=== PATIENT | female | born 1945 | race Caucasian/White ===

== ENCOUNTER 2020-04-05 15:20 | Inpatient (IN) | payer MEDICARE, SELFPAY ==
[2020-04-05] VITALS (10 sets, daily range): BP systolic 108–162; BP diastolic 67–84; PULSE 76–101; RESP 14–23; TEMP 36.4–36.7; O2SAT 95–100; BMI 21.0
--- NOTE | ~2020-04-05 | XR_ITS ---
EXAMINATION: XR hip LT 1V DATE: 04/06/2020 17:13 INDICATION: Left hip replacement. TECHNIQUE: A single view of left hip was obtained. COMPARISON: Left hip radiographs 04/05/2020 FINDINGS: There is a bipolar left hip hemiarthroplasty in near-anatomic alignment. No fracture. Left hip joint space is normal. There is gas in the soft tissues, consistent with recent surgery. IMPRESSION: 1. Bipolar left hip hemiarthroplasty in near-anatomic alignment. Reviewed, dictated and finalized at location A. ULA BOTTLER
--- NOTE | ~2020-04-05 | XR_ITS ---
EXAMINATION: XR hip LT 2V w AP pelvis DATE: 04/05/2020 16:19 INDICATION: Left hip pain. Fall. TECHNIQUE: An anteroposterior view of the pelvis and 2 views of left hip were obtained. COMPARISON: None. FINDINGS: There is a subcapital fracture of left femoral neck. The distal fracture fragment demonstra mayte 2.2 cm shortening and 10 mm anterior displacement. There is mild osteoarthritis of the hips. Ther e is mild lumbar spondylosis. IMPRESSION: 1. Subcapital fracture of left femoral neck. 2. Mild osteoarthritis of the hips. Reviewed, dictated and finalized at location A. PIT WORKER
--- NOTE | ~2020-04-05 | XR_ITS ---
EXAMINATION: XR chest 1V portable DATE: 04/05/2020 16:20 INDICATION: Fall. TECHNIQUE: A single frontal view of the chest was obtained. COMPARISON: None. FINDINGS: The patient is rotated to her right. There is mild scarring at the lung apices. There are m ild airspace opacities in left mid and lower lung zones. No pleural effusion or pneumothorax. The hea rt size is normal. IMPRESSION: 1. Mild airspace opacities in left mid and lower lung zones, consistent with atelectasis versus pneum onia. Reviewed, dictated and finalized at location A. CTOR PROCESS IMPROVEMENT IMPRESSION: 1. Mild airspace opacities in left mid and lower lung zones, consistent with at electasis versus pneumonia.
--- NOTE | 2020-04-05 15:39 | ECG_ITS ---
Measurements Intervals [place] Rate: 76 P: 52 AK: 239 QRS: -59 QRSD: 153 T: 56 QT: 409 QTc: 462 Interpretive Statements SINUS RHYTHM WITH FIRST DEGREE AV BLOCK RIGHT BUNDLE BRANCH BLOCK LEFT ANTERIOR FASCICULAR BLOCK ABNORMAL ECG Electronically Signed On 04-05-2020 16:36:34 POLYSOMNOGRAPHY TECH by Connor Roberts D.O.
[2020-04-05 16:00] LABS: Basophils Percent Auto 0.2 % (0.2-1.2); Hematocrit 44.5 % (37.0-47.0); Hemoglobin 14.5 g/dL (12.0-15.0); Immature Granulocyte Absolute 0.04 K/mm3 (0.00-0.031); Immature Granulocyte Percent A 0.3 % (0-0.5); Lymphocytes Absolute Auto 0.63 K/mm3 (0.9-3.2); Lymphocytes Percent Auto 5.2 % (18.3-44.2); Mean Corpuscular HGB Conc 32.6 g/dl (32-36); Mean Corpuscular Hemoglobin 27.5 pg (26-34); Mean Corpuscular Volume 84.4 fl (80-100); Mean Platelet Volume 10.3 fl (7.4-10.4); Monocytes Absolute Auto 0.5 K/mm3 (0.1-0.6); Monocytes Percent Auto 4.3 % (2.6-8.5); Platelet Count Result 212 k/mm3 (150-375); Red Blood Count 5.27 M/mm3 (4.2-5.4); Red Cell Distribution Width 14.1 % (11.5-14.5); White Blood Count 12.2 K/mm3 (4.5-10.0)
[2020-04-05 16:11] LABS: Alanine Aminotransferase 20 U/L (4-35); Albumin Level 4.4 g/dL (3.5-5.1); Alkaline Phosphatase 110 U/L (38-126); Anion Gap 8 mmol/L (8-16); Aspartate Amino Transferase 25 U/L (14-36); Bilirubin,Total 0.6 mg/dL (0.2-1.3); Blood Urea Nitrogen 20 mg/dL (7-17); Calcium 10.8 mg/dL (8.4-10.2); Carbon Dioxide 25 mmol/L (22-30); Chloride 109 mmol/L (98-107); Estimated CRCL calculation 62 ml/min; Estimated Glomerular Filt Rate > 60; Glucose 158 mg/dL (65-105); Potassium 3.7 mmol/L (3.4-5.0); Sodium 142 mmol/L (137-145)
[2020-04-05 16:40] LABS: INR 0.9; Prothrombin Time 12.5 Seconds (11.1-14.7)
--- NOTE | 2020-04-05 16:53 | ED.GENADULT ---
HPI - General Adult General Chief complaint: Extremity Injury, Lower <MARY Rider Last Filed: 04/05/20 17:13> Stated complaint: left hip pain <MARY Rider Last Filed: 04/05/20 17:13> Time Seen by Provider: 04/05/20 15:28 <MARY Rider Last Filed: 04/05/20 17:13> Source: patient <MARY Rider Last Filed: 04/05/20 17:13> Mode of arrival: ambulatory <MARY Rider Last Filed: 04/05/20 17:13> Limitations: other (Intellectual disability) <MARY Rider Last Filed: 04/05/20 17:13> History of Present Illness HPI narrative: Patient is a 74-year-old female who presents from home for evaluation of left hip injury patient slipped on some papers on the ground this morning injuring the left hip was brought to the emergency department at that time for evaluation. Patient is a limited historian secondary to intellectual disability. Patient lives at home with family. Family denies other injuries or concerns at this time on arrival patient noting left hip pain only denying other injuries or complaints was given morphine <MARY Rider Last Filed: 04/05/20 17:13> Related Data Home medications: Home Medications Medication Instructions Recorded Confirmed amlodipine [Norvasc] 10 mg PO DAILY 04/05/20 04/05/20 losartan [Cozaar] 100 mg PO DAILY 04/05/20 04/05/20 <MARY Rider Last Filed: 04/05/20 17:13> Allergies/adverse reactions: Allergies Allergy/AdvReac Type Severity Reaction Status Date / Time No Known Allergies Allergy Verified 04/05/20 15:32 <MARY Rider Last Filed: 04/05/20 17:13> [facility] Past Medical History Medical History: Medical History HTN (hypertension) with goal to be determined Hypertension Mentally challenged <MARY Rider Last Filed: 04/05/20 17:13> Surgical History Surgical History: Surgical History No pertinent past surgical history <Jon Willson PA-C - Last Filed: 04/05/20 17:13> Family History Family History: Family History Father Heart attack Cancer Hypertension Son Hypertension Sibling Sleep apnea <Jon Willson PA-C - Last Filed: 04/05/20 17:13> Social History Social History: Social History (Updated 04/06/20 @ 08:44 by CLARISSE Campo) Social History: The patient tells me that she lives with her son. She tells me that she has a son and a daughter but her daughter is in [place], [place] in a facility. The patient denies any alcohol use. She denies any marijuana. She stated that she smoked up to 3 packs of cigarettes/day. Patient stated that she quit smoking about 4 years ago. She denies any illicit drugs. She stated that she is a full code and her son is a durable power retail warehouse associate for healthcare. Patient is . She is completely ambulatory without any assistance. Smoking packs per day: 0.2 Smoking cigarettes per day: 4.0 Years smoked: 3 Smoking pack-years: 0.60 Smoking status: Former smoker Tobacco type: cigarettes Smoking end date: 03/05/14 Alcohol intake: never Substance use: never Substance use type: does not use Living arrangements: with family Additional living arrangements comments: lives with son Occupation/Education: unemployed Gender identity (if verbalized by the patient): Female Spiritual care concerns: No <Jon Willson PA-C - Last Filed: 04/05/20 17:13> Exam Narrative: Exam Narrative: GENERAL: Well-appearing, well-nourished, and in no acute distress. HEAD: Normocephalic, atraumatic. EYES: PERRLA and EOMI. ENT: Nares clear, no rhinorrhea or epistaxis. Mucous membranes moist. CHEST: Clear to auscultation. No respiratory distress. No wheezes rales or rh
[2020-04-05] MEDS: SODIUM CHLORIDE 0.9% IV 500 ML 999 ML IV CONT (16:54)
[2020-04-05 17:07] LABS: Add Urine Microscopic? YES; Appearance Urine Cloudy (Clear); Bacteria Urine Trace /hpf; Bilirubin Urine Negative (Negative); Blood Urine Negative (Negative); Color Urine Yellow (Yellow); Glucose Urine UA Negative (Negative); Ketones Urine Negative (Negative); Leukocyte Esterase Ur Negative LEU/UL (Negative); Mucus Urine Rare /lpf; Nitrate Urine Negative (Negative); Protein Urine Negative (Negative); Specific Grav Ur 1.011 (1.001-1.035); Urobilinogen Urine Negative mg/dL (<2.0); WBC Urine 0-3 /hpf
--- NOTE | 2020-04-05 20:27 | ADMGEN ---
This patient, Kimberley Peng, was admitted to Medical Room 254-01. Patient/family oriented to hospital policies and general routines including ID bracelet, bed and alarms, visiting hours, pain management, procedures, bathroom and other care routines, personal items, smoking policy, room service/diet, and visiting hours. Information on how to activate the Rapid Response Team has been discussed. Patient/Family are encouraged to report perceived risks to care and to ask questions if they do not understand what they are told or what they should do.
[2020-04-05] MEDS: LACTATED RINGERS 1,000 ML 75 ML IV CONT (20:30)
[2020-04-05] MEDS: FAMOTIDINE 20 MG/2 ML VIAL IV PUSH (20:32)
[2020-04-05 20:56] LABS: Anion Gap 9 mmol/L (8-16); Blood Urea Nitrogen 18 mg/dL (7-17); Calcium 10.3 mg/dL (8.4-10.2); Carbon Dioxide 20 mmol/L (22-30); Chloride 111 mmol/L (98-107); Estimated CRCL calculation 70 ml/min; Estimated Glomerular Filt Rate > 60; Glucose 154 mg/dL (65-105); Potassium 3.9 mmol/L (3.4-5.0); Sodium 140 mmol/L (137-145)
--- NOTE | 2020-04-05 21:10 | PM.IMHP ---
H&P: HPI History of Present Illness Date/Time: 04/05/20 21:10 Chief Complaint: Left hip fracture Narrative: Kimberley Peng is a 74 year old female who lives with her son. The patient came in to be evaluated for left hip pain today. The patient stated that she slid on some papers at home and landed on her left hip. She denies hitting her head. The patient states that she usually walks independently and does not use at a walker or cane. Patient's white count was 12.2. The patient's blood sugar was 158-154. Calcium 10.3. A Schwartz catheter was placed in the emergency room and it looks like a dark gisell. Chest x-ray was read as mild airspace opacities In left mid and lower lung zones, consistent with atelectasis and pneumonia. Hip and pelvis x-ray was read as subcapital fracture of the left femoral neck. Mild osteoarthritis of the hips. The patient was given IV fluids and IV Tylenol in the emergency room. Ortho has been consulted. Patient was admitted to inpatient services date of service is 04/05/2020. Review of Systems Review of Systems: All systems reviewed & are unremarkable except as noted in HPI and below Constitutional: Constitutional: Reports as per HPI and Reports no additional constitutional complaints Eyes: Eyes: Reports as per HPI and Reports no additional eye complaints ENT: Reports system reviewed and no additional complaints, except as documented and Reports Normal hearing present Cardiovascular: Cardiovascular: Reports no additional cardiovascular complaints Respiratory: Respiratory: Reports no additional respiratory complaints and Reports no additional respiratory complaints Gastrointestinal: Gastrointestinal: Reports as per HPI and Reports no additional gastrointestinal complaints Musculoskeletal: Musculoskeletal: Reports no additional musculoskeletal complaints Integumentary/Breasts: Skin/Breast: Reports system reviewed and no additional complaints, except as docu and Reports as per HPI Neurologic: Reports system reviewed and no additional complaints, except as documented, Reports as per HPI and Reports Normal hearing present Psychiatric: Psychiatric: Reports no additional psychiatric complaints and Reports as per HPI Endocrine: Endocrine: Reports no additional endocrine complaints Hematologic/Lymphatic: Hematologic/Lymphatic: Reports no additional hematologic/lymphatic complaints Allergic/Immunologic: Allergic/Immunologic: Reports no additional allergic/immunologic complaints COUNTS INCLUDE 234 BEDS AT THE [facility] Past Medical History Medical History (Updated 04/05/20 @ 21:39 by Kristin Wynn NP) HTN (hypertension) with goal to be determined Hypertension Mentally challenged Surgical History Surgical History (Updated 04/05/20 @ 21:16 by Kristin Wynn NP) No pertinent past surgical history Family History Family History (Updated 04/05/20 @ 21:35 by Kristin Wynn NP) Father Heart attack Hypertension Cancer Son Hypertension Social History Social History (Updated 04/05/20 @ 21:28 by Kristin Wynn NP) Social History: The patient tells me that she lives with her son. She tells me that she has a son and a daughter but her daughter is in [facility] in a facility. The patient denies any alcohol use. She denies any marijuana. She stated that she smoked up to 3 packs of cigarettes 1 day. Patient stated that she quit smoking about 3 years ago. She denies any illicit drugs. She stated that she is a full code and her son is a durable power workers compensation defense attorney for healthcare. Patient is . She is completely ambulatory without any assistance. she is . Spiritual care concerns: No Meds Home Medications and Allergies Home Medications Medication Instructions Recorded Confirmed Type amlodipine [Norvasc] 10 mg PO DAILY 04/05/20 04/05/20 History losartan 04/05/20 History Allergies Allergy/AdvReac Type Severity Reaction Status Date / Time No Known Allergies Allergy Verified
[2020-04-06] VITALS (12 sets, daily range): BP systolic 105–150; BP diastolic 56–92; PULSE 80–92; RESP 13–18; TEMP 36.6–37.8; O2SAT 94–100
[2020-04-06 06:10] LABS: Basophils Percent Auto 0.3 % (0.2-1.2); Hematocrit 40.3 % (37.0-47.0); Hemoglobin 13.3 g/dL (12.0-15.0); Immature Granulocyte Absolute 0.03 K/mm3 (0.00-0.031); Immature Granulocyte Percent A 0.3 % (0-0.5); Lymphocytes Absolute Auto 0.72 K/mm3 (0.9-3.2); Lymphocytes Percent Auto 8.4 % (18.3-44.2); Mean Corpuscular Hemoglobin 27.5 pg (26-34); Mean Corpuscular Volume 83.4 fl (80-100); Monocytes Absolute Auto 0.7 K/mm3 (0.1-0.6); Monocytes Percent Auto 8.5 % (2.6-8.5); Neutrophils Absolute Auto 7.1 K/mm3 (1.3-6.7); Neutrophils Percent Auto 82.5 % (45.5-73.1); Platelet Count Result 191 k/mm3 (150-375); Red Blood Count 4.83 M/mm3 (4.2-5.4); Red Cell Distribution Width 14.2 % (11.5-14.5); White Blood Count 8.6 K/mm3 (4.5-10.0)
[2020-04-06 06:27] LABS: Anion Gap 6 mmol/L (8-16); Blood Urea Nitrogen 14 mg/dL (7-17); Carbon Dioxide 24 mmol/L (22-30); Chloride 110 mmol/L (98-107); Estimated CRCL calculation 59 ml/min; Estimated Glomerular Filt Rate > 60; Glucose 115 mg/dL (65-105); Potassium 3.2 mmol/L (3.4-5.0); Sodium 140 mmol/L (137-145)
--- NOTE | 2020-04-06 08:38 | PM.CNOR ---
Assessment and Plan Assessment and plan (1) Closed left hip fracture: Qualifiers: Encounter type: initial encounter Qualified Code(s): S72.002A - Fracture of unspecified part of neck of left femur, initial encounter for closed fracture <CLARISSE Campo - Last Filed: 04/06/20 08:48> Code(s): S72.002A - Fracture of unspecified part of neck of left femur, initial encounter for closed fracture <CLARISSE Campo - Last Filed: 04/06/20 08:48> Status: Acute <CLARISSE Campo - Last Filed: 04/06/20 08:48> Assessment and Plan: History, exam and radiographs reviewed with the patient. Radiographs the left hip reveal a subcapital fracture of left femoral neck. discussed condition, nature, etiology and course of natural history. Conservative and operative treatment options reviewed as well the risks and benefits of each. The patient desires operative treatment. Discussed Left Hip Bipolar Risks of surgery including but not limited to neurovascular damage, wound complications, blood clot, pulmonary embolus, stroke, myocardial infarction, anesthetic risks up to and including were reviewed. Continued pain and possible dysfunction were explained. No guarantees were offered. The patient understands and wishes to proceed. Plan: Left Hip Bipolar by Dr. Arias pending medical clearance Obtain consent. NPO in the inteirm. Bedrest Pain control. Ice. <CLARISSE Campo - Last Filed: 04/06/20 08:48> History of Present Illness HPI Consult date: 04/06/20 <CLARISSE Campo - Last Filed: 04/06/20 08:48> 04/06/20 <Filippo Arias MD - Last Filed: 04/06/20 13:55> Requesting physician: Kristin Wynn NP <CLARISSE Campo - Last Filed: 04/06/20 08:48> Consult reason: fracture (Left Hip Fracture ) <CLARISSE Campo - Last Filed: 04/06/20 08:48> Chief complaint: left hip fracture <CLARISSE Campo - Last Filed: 04/06/20 08:48> Narrative: 74-year-old female admitted status post fall at home. Per the patient, she lives with her son who called EMS after her fall. She did not lose consciousness. She did not her head. She denies any other pain aside from the left hip. She reports having slipped on a piece of paper. Radiographs obtained in the emergency room reveal subcapital fracture of left femoral neck. Orthopedic consult requested by the emergency room physicians. <Linda Veras [facility] - Last Filed: 04/06/20 08:48> Review of Systems Constitutional: Constitutional: Reports no additional constitutional complaints, Denies excessive sweating, Denies fever(s) and Denies weight gain <Linda Veras [facility] Last Filed: 04/06/20 08:48> Eyes: Eyes: Reports no additional eye complaints and Denies change in vision <Linda Veras [facility] Last Filed: 04/06/20 08:48> ENT: Reports system reviewed and no additional complaints, except as documented and Reports Normal hearing present <Linda AlfonzoWai Veras [facility] Last Filed: 04/06/20 08:48> Cardiovascular: Cardiovascular: Denies chest pain, Denies diaphoresis, Denies leg ulcers and Denies dyspnea on exertion <Lindasa Josiah Veras [facility] - Last Filed: 04/06/20 08:48> Respiratory: Respiratory: Reports no additional respiratory complaints, Denies cough and Denies dyspnea on exertion <Lindasa Josiah Veras [facility] Last Filed: 04/06/20 08:48> Gastrointestinal: Gastrointestinal: Reports no additional gastrointestinal complaints, Denies abdominal pain, Denies constipation, Denies nausea and Denies vomiting <Lindasa Josiah Veras [facility] Last Filed: 04/06/20 08:48> Genitourinary: Genitourinary: Denies hematuria and Denies urinary frequency <Lindasa Josiah Veras [facility] Last Filed: 04/06/20 08:48> Musculoskeletal: Musculoskeletal: Reports as per HPI <Linda Veras [facility] Last Filed: 04/06/20 08:48> Integumentary/Breasts: Skin/Breast: Reports system reviewed and no additional complaints, except as docu <Linda Veras, TRAUMA DIRECTOR - Last Filed:
[2020-04-06] MEDS: FAMOTIDINE 20 MG/2 ML VIAL IV PUSH (08:39)
[2020-04-06] MEDS: LACTATED RINGERS 1,000 ML 75 ML IV CONT (11:45)
[2020-04-06] MEDS: KCL 20 MEQ/SW 100 ML 100 ML 50 MEQ IVPB (11:45)
--- NOTE | 2020-04-06 11:50 | PM.IMPN ---
Progress Note: A&P Assessment and Plan (1) Closed left hip fracture: Qualifiers: Encounter type: initial encounter Qualified Code(s): S72.002A - Fracture of unspecified part of neck of left femur, initial encounter for closed fracture Code(s): S72.002A - Fracture of unspecified part of neck of left femur, initial encounter for closed fracture Status: Acute Assessment and Plan: Due to mechanical fall -plan for surgery this afternoon -continue pain medications, DVT prophylaxis, PT and OT per ortho (2) Pneumonia: Code(s): J18.9 - Pneumonia, unspecified organism Status: Acute Assessment and Plan: Chest x-ray shows left-sided pneumonia although patient has not had any symptoms such as cough or fever prior to admission -no antibiotics were given at 1st but the patient did start to have a fever 04/06/20 and antibiotics were started -I will also test for COVID-19 although this seem less likely at this time -ortho notified (3) HTN (hypertension) with goal to be determined: Code(s): I10 - Essential (primary) hypertension Status: Chronic Assessment and Plan: Last blood pressure 144/67 -continue Norvasc and losartan (4) Mentally challenged: Code(s): F79 - Unspecified intellectual disabilities Status: Chronic Assessment and Plan: She is pretty active and able to hold a conversation -chronic and lives with her son Time Spent With Patient Time with patient: 25 - 35 minutes Subjective Date/time seen: 04/06/20 11:50 Interval history: Pt is a female here for hip fracture. Patient was seen today and has no complaints. She said her pain is relatively well controlled and she is just waiting for surgery. Although she does not know the year or the president, I think this is her baseline and she does not seem confused. Pt denies nausea, vomiting, fevers, chills, constipation, diarrhea, chest pain, sob, cough, or abdominal pain. She says she has not been coughing or running fevers at home Review of Systems Review of Systems: All systems reviewed & are unremarkable except as noted in HPI and below Exam Narrative: Exam Narrative: General: Well developed well nourished patient in NAD HEENT: normocephalic Neck: supple Neuro: Alert and oriented to herself, reason for hospitalization, and place but did not know the year or president. I do think this is due to her intellectual disability CV:RRR Resp: Decreased breath sounds, good air flow. No crackles or rhonchi Abd: Soft, non distended. No pain to palpation. Positive bowel sounds Extremities: No erythema, swelling, or pain to palpation to the lower extremities. Sensation and pulses intact Objective Data Vital Signs Vital Signs: Vital Signs - 24 hr 04/05/20 15:19 04/05/20 15:31 04/05/20 16:19 Temperature 98.0 F Pulse Rate 95 85 78 Respiratory Rate 18 16 21 H Blood Pressure 143/77 H 139/68 154/73 H Pulse Oximetry 99 96 95 04/05/20 16:27 04/05/20 17:14 04/05/20 17:16 Temperature Pulse Rate 76 100 101 H Respiratory Rate 17 22 H 23 H Blood Pressure 108/67 154/75 H 162/76 H Pulse Oximetry 100 97 97 04/05/20 17:17 04/05/20 18:31 04/05/20 20:27 Temperature 98.0 F Pulse Rate 85 77 84 Respiratory Rate 15 16 16 Blood Pressure 162/76 H 153/84 H 155/75 H Pulse Oximetry 98 96 95 04/05/20 21:51 04/06/20 06:00 04/06/20 09:52 Temperature 97.6 F 98.9 F Pulse Rate 82 80 Respiratory Rate 14 16 Blood Pressure 154/77 H 150/66 H Pulse Oximetry 96 95 94 Intake/Output Intake/Output: Intake & Output 04/03/20 04/04/20 04/05/20 04/06/20 23:59 23:59 23:59 23:59 Intake Total 600 1200 Output Total 850 Balance 600 350 Meds/Results Medications: Active Medications Generic Name Dose Route Start Last Admin Trade Name Freq PRN Reason Stop Dose Admin Sodium Chloride 38.7 ml/ 0 ml 04/06/20 13:00 Morphine Sulfate 2 mg/ XX 04/06/20 13:01 Ro
--- NOTE | 2020-04-06 13:08 | WPDANESEPPF ---
Anes - Initial Pre Proc Eval Procedure: Operation Date: 04/06/20 14:00 Proposed Procedures p Left Bipolar Hip Replacement(Left) - Filippo Arias MD s Possible Left Total Hip Arthroplasty - Filippo Arias MD Date/Time: 04/06/20 13:08 Surgeon: Humera Watkins PA-C Pre Op Diagnosis: left hip fracture Patient Data Age: 74 Gender: F Height: 1.63 m Weight: 55.6 kg Last Vital Signs Temp 37.8 C H 04/06/20 12:33 Pulse 87 04/06/20 12:33 Resp 16 04/06/20 12:33 BP 144/67 H 04/06/20 12:33 Pulse Ox 97 04/06/20 12:33 Allergies Allergy/AdvReac Type Severity Reaction Status Date / Time No Known Allergies Allergy Verified 04/05/20 15:32 Home Medications Medication Instructions Recorded Confirmed Type amlodipine [Norvasc] 10 mg PO DAILY 04/05/20 04/05/20 History losartan [Cozaar] 100 mg PO DAILY 04/05/20 04/05/20 History Laboratory Tests 04/05/20 04/05/20 04/05/20 15:55 15:55 15:55 WBC 12.2 K/mm3 H K/mm3 (4.5-10.0) RBC 5.27 M/mm3 M/mm3 (4.2-5.4) Hgb 14.5 g/dL g/dL (12.0-15.0) Hct 44.5 % % (37.0-47.0) MCV 84.4 fl fl (80-100) MCH 27.5 pg pg (26-34) MCHC 32.6 g/dl g/dl (32-36) RDW 14.1 % % (11.5-14.5) Plt Count 212 k/mm3 k/mm3 (150-375) MPV 10.3 fl fl (7.4-10.4) Immature Gran % (Auto) 0.3 % % (0-0.5) Neut % (Auto) 90.0 % H % (45.5-73.1) Lymph % (Auto) 5.2 % L % (18.3-44.2) [place] % (Auto) 4.3 % % (2.6-8.5) Eos % (Auto) 0.0 % % (0-4.4) Baso % (Auto) 0.2 % % (0.2-1.2) Lymph # (Auto) 0.63 K/mm3 L K/mm3 (0.9-3.2) [place] # (Auto) 0.5 K/mm3 K/mm3 (0.1-0.6) Eos # (Auto) 0.0 K/mm3 K/mm3 (0-0.3) Baso # (Auto) 0.0 K/mm3 K/mm3 (0.0-0.1) Abs Immat Gran (auto) 0.04 K/mm3 H K/mm3 (0.00-0.031) Absolute Neuts (auto) 11.0 K/mm3 H K/mm3 (1.3-6.7) Absolute Nucleated RBC 0.0 K/mm3 K/mm3 (0.0-0.012) Nucleated RBC % 0.0 % % (0.0-0.2) PT 12.5 Seconds Seconds (11.1-14.7) INR 0.9 APTT 23.0 SECONDS SECONDS (22.3-36.8) Sodium 142 mmol/L mmol/L (137-145) Potassium 3.7 mmol/L mmol/L (3.4-5.0) Chloride 109 mmol/L H mmol/L (98-107) Carbon Dioxide 25 mmol/L mmol/L (22-30) Anion Gap 8 mmol/L mmol/L (8-16) BUN 20 mg/dL H mg/dL (7-17) Creatinine 0.60 mg/dL L mg/dL (0.7-1.0) Estim Creat Clear Calc 62 ml/min ml/min Estimated GFR > 60 (59 - ) Glucose 158 mg/dL H mg/dL (65-105) Calcium 10.8 mg/dL H mg/dL (8.4-10.2) Total Bilirubin 0.6 mg/dL mg/dL (0.2-1.3) AST 25 U/L U/L (14-36) ALT 20 U/L U/L (4-35) Alkaline Phosphatase 110 U/L U/L (38-126) Total Protein 8.0 g/dL g/dL (6.3-8.2) Albumin 4.4 g/dL g/dL (3.5-5.1) Urine Color Urine Appearance Urine pH Ur Specific [place] Urine Protein Urine Glucose (UA) Urine Ketones Ur Blood (Man) Urine Nitrate Urine Bilirubin Urine Urobilinogen Leukocyte Esterase Rfl Urine RBC Urine WBC Urine Bacteria Urine Mucus Blood Type Antibody Screen 04/05/20 04/05/20 04/05/20 16:56 20:11 22:30 WBC RBC Hgb Hct MCV MCH MCHC RDW Plt Count MPV Immature Gran % (Auto) Neut % (Auto) Lymph % (Auto) [place] % (Auto) Eos % (Auto) Baso % (Auto) Lymph # (Auto) [place] # (Auto)
[2020-04-06] MEDS: TRANEXAMIC ACID 1,000MG/ISO100 1,000 MG/100 ML BAG 200 MG IVPB (13:50)
[2020-04-06] MEDS: LACTATED RINGERS 1,000 ML 30 ML IV CONT ×2 (13:53→16:55)
--- NOTE | 2020-04-06 13:55 | WPDHPUPDATE1 ---
History and Physical Update Update Date/Time: 04/06/20 13:55 History and Physical has been reviewed, including an updated exam of the patient. There are NO changes in the patient's condition. Risks, benefits, and alternatives have been discussed and questions answered. Patient agrees to proceed with procedure.
[2020-04-06] MEDS: ceFAZolin 2 GM/D5W 50 ML 2 GM/50 ML BAG IVPB ×2 (14:16→20:21)
--- NOTE | 2020-04-06 16:55 | P.OP_ITS ---
Procedure Note - Detailed Date of procedure: 04/06/20 Pre-op diagnosis: left hip fracture LEFT FEMORAL NECK FRACTURE Post-op diagnosis: same Procedure performed: LEFT HIP BIPOLAR HEMIARTHROPLASTY Description of procedure: THE PATIENT WAS TAKEN TO THE OPERATING ROOM IN STABLE CONDITION. HE WAS PLACED IN THE LATERAL DECUBITUS AND THE LEFT LOWER EXTREMITY WAS PREPPED AND DRAPED IN THE STERILE FASHION. INCISION WAS MADE IN THE POSTERIOR LATERAL SIDE OF THE HIP, DOWN TO THE FASCIA LAYER. THE FASCIA WAS INCISED. THE HIP WAS EXPOSED. THE SHORT EXTERNAL ROTATORS WERE EXPOSED AND THERE WAS A LARGE HEMATOMA. THE CAPSULE WAS INCISED EXPOSING THE FRACTURE. THE FEMORAL HEAD WAS REMOVED. IT MEASURED 47 MM. AN OSTEOTOMY WAS MADE TO THE FEMORAL NECK ABOUT 1 CM PROXIMAL TO THE LESSER TROCHANTER. NEXT THE FEMUR WAS P REPARED WITH INITIAL CANAL FINDER THEN SEQUENTIAL REAMING UNTIL A #9 REAMER AND BROACHING TILL A #9 BROACH FIT WELL IN 15 OF ANTE VERSION. A -3 STANDARD OFFSET NECK BIPOLAR TRIAL WAS PLACED. THE SHUCK TEST WAS EXCELLENT AND THE STABILITY IN FLEXION AND ROTATION WAS EXCELLENT. LEG LENGTHS WERE GROSSLY EQUAL. TRIALS WERE REMOVED. AN ECHO BIMETRIC #9 PRESS FIT STEM WAS PLACED WITH A STANDARD OFF SET IN 15 DEG OF ANTEVERSION. A -3 BIPOLAR HEAD NECK TRIAL WAS PLACED AGAIN. THE HIP WAS TRIALED AND THE STABILITY WAS EXCELLENT WERE THE LEG LENGTHS AND THE SHUCK TEST. NEXT A BIPOLAR HEAD NECK -3 IMPLANT WAS PLACED AND TRIALED ONCE AGAIN SHOWING EXCELLENT STABILITY AND GROSSLY EQUAL LEG LENGTHS. THE WOUND WAS IRRIGATED WITH STERILE BETADINE AND WATER FOR 3 MIN. THEN WASHED AGAIN. THE CAPSULE AND THE EXTERNAL ROTATORS WERE APPROXIMATED WITH NUMBER 1 VICRYL. THE FASCIA WITH No 2 QUIL AND THE SUB CUTANEOUS LAYER WITH 2-0 ABSORBABLE SUTURE WITH A RUNNING 3-0 SUBCUTICULAR LAYER WELL. DERMABOND WAS PLACED AND STERILE DRESSING WAS APPLIED. PATIENT WAS PLACED BACK ON TO THE SUPINE POSITION AND WAS EXTUBATED. Anesthesia: GETA Surgeon: Filippo Arias MD Estimated blood loss (mL): 450 Drains: No Complications: No immediate complications Condition: stable Disposition: PACU
--- NOTE | 2020-04-06 17:34 | SUR.PHASEI ---
PORTABLE XRAY OF LEFT HIP DONE. HYDRAULIC DREDGE OPERATOR HERE TO DRAW BLOOD.
[2020-04-06 18:16] LABS: CRP 4.9 mg/dL (<1.0); Lactate Dehydrogenase 450 U/L (313-618)
[2020-04-06] MEDS: SODIUM CHLORIDE 0.9% IV 1,000 ML 125 ML IV CONT (20:21)
[2020-04-06] MEDS: FAMOTIDINE 20 MG TABLET PO (20:38)
[2020-04-06] MEDS: HYDROcodone/acetaminophen (*CRX) 7.5-325 MG TABLET 1 TAB PO (21:51)
[2020-04-07 00:03] VITALS: BP 132/67; PULSE 75; RESP 18; TEMP 36.5; O2SAT 96
[2020-04-07 04:03] VITALS: BP 132/61; PULSE 74; RESP 18; TEMP 36.9; O2SAT 96
[2020-04-07] MEDS: SODIUM CHLORIDE 0.9% IV 1,000 ML 125 ML IV CONT (04:33)
[2020-04-07] MEDS: ceFAZolin 2 GM/D5W 50 ML 2 GM/50 ML BAG IVPB ×2 (04:33→11:46)
[2020-04-07] MEDS: HYDROcodone/acetaminophen (*CRX) 7.5-325 MG TABLET 1 TAB PO ×2 (04:35→17:37)
[2020-04-07 05:34] LABS: Basophils Percent Auto 0.1 % (0.2-1.2); Hematocrit 31.5 % (37.0-47.0); Hemoglobin 10.2 g/dL (12.0-15.0); Immature Granulocyte Absolute 0.04 K/mm3 (0.00-0.031); Immature Granulocyte Percent A 0.3 % (0-0.5); Lymphocytes Absolute Auto 0.72 K/mm3 (0.9-3.2); Mean Corpuscular HGB Conc 32.4 g/dl (32-36); Mean Corpuscular Hemoglobin 27.2 pg (26-34); Mean Platelet Volume 10.8 fl (7.4-10.4); Monocytes Absolute Auto 1.1 K/mm3 (0.1-0.6); Monocytes Percent Auto 9.5 % (2.6-8.5); Neutrophils Percent Auto 84.1 % (45.5-73.1); Platelet Count Result 191 k/mm3 (150-375); Red Blood Count 3.75 M/mm3 (4.2-5.4); Red Cell Distribution Width 14.4 % (11.5-14.5); White Blood Count 11.9 K/mm3 (4.5-10.0)
[2020-04-07 05:46] LABS: Hemoglobin A1C 5.6 % (<5.7)
[2020-04-07 06:04] LABS: Alanine Aminotransferase 15 U/L (4-35); Albumin Level 3.1 g/dL (3.5-5.1); Alkaline Phosphatase 68 U/L (38-126); Anion Gap 4 mmol/L (8-16); Aspartate Amino Transferase 34 U/L (14-36); Bilirubin,Total 0.5 mg/dL (0.2-1.3); Blood Urea Nitrogen 14 mg/dL (7-17); Calcium 8.9 mg/dL (8.4-10.2); Carbon Dioxide 24 mmol/L (22-30); Chloride 112 mmol/L (98-107); Estimated CRCL calculation 52 ml/min; Estimated Glomerular Filt Rate > 60; Glucose 120 mg/dL (65-105); Magnesium 1.9 mg/dL (1.6-2.3); Phosphorus 1.7 mg/dL (2.5-4.5); Potassium 3.4 mmol/L (3.4-5.0); Sodium 140 mmol/L (137-145)
--- NOTE | 2020-04-07 07:31 | WPDANESPN ---
Anes - Prog Note Post-Op Date/Time: 04/07/20 07:31 Cardiovascular status: normal Respiratory status: normal Airway patency: baseline Mental status: baseline Post-Op hydration status: normal Vital Signs: Last Vital Signs Temp 36.5 C 04/07/20 00:03 Pulse 75 04/07/20 00:03 Resp 18 04/07/20 00:03 BP 132/67 04/07/20 00:03 Pulse Ox 96 04/07/20 00:03 Pain Score (VAS): 1 I/O: Intake & Output 04/06/20 04/06/20 04/07/20 15:59 23:59 07:59 Intake Total 8239 718 4619 Output Total 120 Balance 0344 411 4415 Laboratory Tests 04/07/20 04:56 04/07/20 04:56 04/06/20 04/06/20 04/07/20 17:41 17:41 02:57 WBC RBC Hgb Hct MCV MCH MCHC RDW Plt Count MPV Immature Gran % (Auto) Neut % (Auto) Lymph % (Auto) [place] % (Auto) Eos % (Auto) Baso % (Auto) Lymph # (Auto) [place] # (Auto) Eos # (Auto) Baso # (Auto) Abs Immat Gran (auto) Absolute Neuts (auto) Absolute Nucleated RBC Nucleated RBC % Sodium Potassium Chloride Carbon Dioxide Anion Gap BUN Creatinine Estim Creat Clear Calc Estimated GFR Glucose Hemoglobin A1c Calcium Phosphorus Magnesium Ferritin 77.30 Total Bilirubin AST ALT Alkaline Phosphatase Lactate Dehydrogenase 450 C-Reactive Protein 4.9 H Total Protein Albumin SARS-CoV-2 RNA (RT-PCR) Pending 04/07/20 04/07/20 04/07/20 04:56 04:56 04:56 WBC 11.9 H RBC 3.75 L Hgb 10.2 L D Hct 31.5 L MCV 84.0 MCH 27.2 MCHC 32.4 RDW 14.4 Plt Count 191 MPV 10.8 H Immature Gran % (Auto) 0.3 Neut % (Auto) 84.1 H Lymph % (Auto) 6.0 L [place] % (Auto) 9.5 H Eos % (Auto) 0.0 Baso % (Auto) 0.1 L Lymph # (Auto) 0.72 L [place] # (Auto) 1.1 H Eos # (Auto) 0.0 Baso # (Auto) 0.0 Abs Immat Gran (auto) 0.04 H Absolute Neuts (auto) 10.0 H Absolute Nucleated RBC 0.0 Nucleated RBC % 0.0 Sodium 140 Potassium 3.4 Chloride 112 H Carbon Dioxide 24 Anion Gap 4 L BUN 14 Creatinine 0.70 Estim Creat Clear Calc 52 Estimated GFR > 60 Glucose 120 H Hemoglobin A1c 5.6 Calcium 8.9 Phosphorus 1.7 L Magnesium 1.9 Ferritin Total Bilirubin 0.5 AST 34 ALT 15 Alkaline Phosphatase 68 Lactate Dehydrogenase C-Reactive Protein Total Protein 6.0 L Albumin 3.1 L SARS-CoV-2 RNA (RT-PCR) Post-procedural complaints: none Patient Feedback: Patient satisfied with anesthetic care.
[2020-04-07] MEDS: LOSARTAN POTASSIUM 100 MG TABLET PO (08:14)
[2020-04-07] MEDS: CELECOXIB 200 MG CAPSULE PO (08:14)
[2020-04-07] MEDS: amLODIPine BESYLATE 5 MG TABLET 10 MG PO (08:14)
[2020-04-07] MEDS: FONDAPARINUX SODIUM 2.5 MG/0.5 ML SYRINGE SUB-Q (08:15)
[2020-04-07] MEDS: DOCUSATE SODIUM 100 MG CAPSULE PO ×2 (08:15→17:37)
[2020-04-07] MEDS: FAMOTIDINE 20 MG TABLET PO ×2 (08:15→20:55)
[2020-04-07] MEDS: POTASSIUM CHLORIDE 20 MEQ TABLET 40 MEQ PO (08:26)
[2020-04-07 10:21] VITALS: BP 138/64; PULSE 97; RESP 24; TEMP 36.7; O2SAT 96
[2020-04-07] MEDS: POTASSIUM PHOS/SODIUM PHOS 250 MG TABLET PO ×2 (10:54→17:37)
--- NOTE | 2020-04-07 12:02 | PM.IMPN ---
Progress Note: A&P Assessment and Plan (1) Closed left hip fracture: Qualifiers: Encounter type: initial encounter Qualified Code(s): S72.002A - Fracture of unspecified part of neck of left femur, initial encounter for closed fracture Code(s): S72.002A - Fracture of unspecified part of neck of left femur, initial encounter for closed fracture Status: Acute Assessment and Plan: Due to mechanical fall -underwent a left hip bipolar hemiarthroplasty -for DVT prophylaxis -continue pain medications, DVT prophylaxis, PT and OT per ortho -pain is well controlled today -could need placement in 1-2 days (2) Pneumonia: Code(s): J18.9 - Pneumonia, unspecified organism Status: Acute Assessment and Plan: Chest x-ray shows left-sided pneumonia although patient has not had any symptoms such as cough or fever prior to admission -no antibiotics were given at 1st but the patient did start to have a fever 04/06/20 and antibiotics were started -I will also test for COVID-19 although this seem less likely at this time -no further fevers, influenza less likely -ortho notified (3) HTN (hypertension) with goal to be determined: Code(s): I10 - Essential (primary) hypertension Status: Chronic Assessment and Plan: Last blood pressure 138/64 -continue Norvasc and losartan (4) Mentally challenged: Code(s): F79 - Unspecified intellectual disabilities Status: Chronic Assessment and Plan: She is pretty active and able to hold a conversation -lives with her son Subjective Date/time seen: 04/07/20 12:02 Interval history: Pt is a female here for hip fracture. Patient was seen today and has no complaints. She said her pain is relatively well controlled and she is just waiting for surgery. Although she does not know the year or the president, I think this is her baseline and she does not seem confused. Pt denies nausea, vomiting, fevers, chills, constipation, diarrhea, chest pain, sob, cough, or abdominal pain. She says she has not been coughing or running fevers at home. Overall she is doing well today Exam Narrative: Exam Narrative: General: Well developed well nourished patient in NAD HEENT: normocephalic Neck: supple Neuro: Alert and oriented to herself, reason for hospitalization, and place but did not know the year or president. I do think this is due to her intellectual disability CV:RRR Resp: Decreased breath sounds, good air flow. No crackles or rhonchi Abd: Soft, non distended. No pain to palpation. Positive bowel sounds Extremities: No erythema, swelling, or pain to palpation to the lower extremities. Sensation and pulses intact. Bandage over her left hip without erythema, dehiscence or discharge. Objective Data Vital Signs Vital Signs: Vital Signs - 24 hr 04/06/20 12:33 04/06/20 16:55 04/06/20 17:10 Temperature 100.1 F H 98.7 F Pulse Rate 87 88 86 Respiratory Rate 16 18 13 Blood Pressure 144/67 H 129/68 139/92 H Pulse Oximetry 97 100 100 04/06/20 17:25 04/06/20 17:50 04/06/20 18:04 Temperature 98.1 F Pulse Rate 89 86 85 Respiratory Rate 18 14 17 Blood Pressure 118/74 109/78 115/72 Pulse Oximetry 100 94 95 04/06/20 18:12 04/06/20 18:30 04/06/20 19:00 Temperature 97.9 F 98.3 F Pulse Rate 84 92 83 Respiratory Rate 17 16 18 Blood Pressure 126/64 105/56 L Pulse Oximetry 94 95 95 04/06/20 20:03 04/07/20 00:03 04/07/20 04:03 Temperature 98.6 F 97.7 F 98.4 F Pulse Rate 80 75 74 Respiratory Rate 18 18 18 Blood Pressure 114/69 132/67 132/61 Pulse Oximetry 96 96 96 04/07/20 10:21 Temperature 98.1 F Pulse Rate 97 Respiratory Rate 24 H Blood Pressure 138/64 Pulse Oximetry 96 Intake/Output Intake/Output: Intake & Output 04/04/20 04/05/20 04/06/20 04/07/20 23:59 23:59 23:59 23:59 Intake Total 600 1650 1690 Output Total 970 500 Balance 647 666 3648 Meds/Results Medications: A
--- NOTE | 2020-04-07 14:33 | WPDPN ---
Progress Note: A&P Additional Plan POD 1 DOING WELL. COVID PENDING. HGB STABLE. N POSSIBLE [facility] CANDIDATE. WILL FOLLOW. 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 [employer]G [employer] SIGN Objective Data Vital Signs Vital Signs: Vital Signs - 24 hr 04/06/20 16:55 04/06/20 17:10 04/06/20 17:25 Temperature 37.1 C Pulse Rate 88 86 89 Respiratory Rate 18 13 18 Blood Pressure 129/68 139/92 H 118/74 Pulse Oximetry 100 100 100 04/06/20 17:50 04/06/20 18:04 04/06/20 18:12 Temperature 36.7 C Pulse Rate 86 85 84 Respiratory Rate 14 17 17 Blood Pressure 109/78 115/72 Pulse Oximetry 94 95 94 04/06/20 18:30 04/06/20 19:00 04/06/20 20:03 Temperature 36.6 C 36.8 C 37.0 C Pulse Rate 92 83 80 Respiratory Rate 16 18 18 Blood Pressure 126/64 105/56 L 114/69 Pulse Oximetry 95 95 96 04/07/20 00:03 04/07/20 04:03 04/07/20 10:21 Temperature 36.5 C 36.9 C 36.7 C Pulse Rate 75 74 97 Respiratory Rate 18 18 24 H Blood Pressure 132/67 132/61 138/64 Pulse Oximetry 96 96 96 Intake/Output Intake/Output: Intake & Output 04/04/20 04/05/20 04/06/20 04/07/20 23:59 23:59 23:59 23:59 Intake Total 600 1650 1740 Output Total 970 500 Balance 264 994 0789 Meds/Results Medications: Active Medications Generic Name Dose Route Start Last Admin Trade Name Freq PRN Reason Stop Dose Admin Hydrocodone Bitart/Acetaminophen 1 tab 04/06/20 18:18 04/07/20 04:35 Hydrocodone/Acetaminophen (*Crx) 7.5-325 Mg Tablet PO 1 tab Q3H PRN Administration Pain Rated 4-6 Amlodipine Besylate 10 mg 04/07/20 09:00 04/07/20 08:14 Amlodipine Besylate 5 Mg Tablet PO 10 mg DAILY YOVANNY Administration Celecoxib 200 mg 04/07/20 09:00 04/07/20 08:14 Celecoxib 200 Mg Capsule PO 200 mg DAILY YOVANNY Administration Diazepam 5 mg 04/06/20 18:18 Diazepam (*Crx) 5 Mg Tablet PO Q6H PRN Anxiety/Muscle Spasm Docusate Sodium 100 mg 04/07/20 09:00 04/07/20 08:15 Docusate Sodium 100 Mg Capsule PO 100 mg BID YOVANNY Administration Famotidine 20 mg 04/06/20 21:00 04/07/20 08:15 Famotidine 20 Mg Tablet PO 20 mg Q12HR YOVANNY Administration Fondaparinux 2.5 mg 04/07/20 09:00 04/07/20 08:15 Fondaparinux Sodium 2.5 Mg/0.5 Ml Syringe SUB-Q 2.5 mg DAILY YOVANNY Administration Hydralazine HCl 10 mg 04/05/20 21:41 Hydralazine Hcl 20 Mg/Ml Vial IV PUSH Q8H PRN Blood Pressure - High Ceftriaxone Sodium/Dextrose 1 gm in 50 mls @ 100 mls/hr 04/06/20 14:00 04/06/20 17:55 Rocephin 1 Gm/D5w 50 Ml IVPB 100 mls/hr Q24H YOVANNY Administration Azithromycin 250 mg/ Dextrose 250 mls @ 250 mls/hr 04/07/20 14:00 04/07/20 14:25 IVPB 250 mls/hr Q24H YOVANNY Administration Losartan Potassium 100 mg 04/07/20 09:00 04/07/20 08:14 Losartan Potassium 100 Mg Tablet PO 100 mg DAILY YOVANNY Administration Magnesium Hydroxide 30 ml 04/06/20 18:18 Magnesium Hydroxide Susp 30 Ml Udc PO BID PRN Constipation Morphine Sulfate 3 mg 04/06/20 18:18 Morphine Sulfate (*Crx) 4 Mg/Ml Inj IV PUSH Q3H PRN Pain Rated 7-10 Naloxone HCl 0.1 mg 04/06/20 18:18 Naloxone Hcl 0.4 Mg/Ml Vial IV PUSH Q2M PRN Opiate Reversal Ondansetron HCl 4 mg 04/06/20 18:18 Ondansetron Inj 4 Mg/2 Ml Vial IV PUSH Q4H PRN Nausea And Vomiting Sodium Phosphate 250 mg 04/07/20 09:00 04/07/20 10:54 Potassium Phos/Sodium Phos 250 Mg Tablet PO 250 mg BID YOVANNY Administration Radiology Results: ITS Impressions Hip/Pelvis X-Ray 04/05/20 16:20 IMPRESSION: 1. Subcapital fracture of left femoral neck. 2. Mild osteoarthritis of the hips. Chest X-Ray 04/05/20 16:21 IMPRESSION: 1. Mild airspace opacities in left mid and lower lung zones, consistent with atelectasis versus pneumonia. Hip X-Ray 04/06/20 17:15 IMPRESSION: 1. Bipolar left hip hemiarthroplasty in near-anatomic alignment. Labs Labs: Laboratory Results - las
[2020-04-07 14:55] VITALS: BP 134/65; PULSE 74; RESP 18; TEMP 36.6; O2SAT 95
--- NOTE | 2020-04-07 15:28 | PC.NURSE ---
On 04/07/20, the student, [ Laureen Nixon], provided care and completed [facility] documentation on this patient. I have reviewed the student's documentation and agree with the findings.
[2020-04-07 17:16] LABS: SARS-CoV-2 RNA PCR Negative
[2020-04-07 18:00] VITALS: BP 135/54; PULSE 104; RESP 18; TEMP 37.1; O2SAT 93
[2020-04-07 20:00] VITALS: BP 137/72; PULSE 89; RESP 20; TEMP 36.9; O2SAT 96
[2020-04-08] VITALS: BP 117/54; PULSE 96; RESP 20; TEMP 37.2; O2SAT 94
[2020-04-08 04:00] VITALS: BP 141/66; PULSE 82; RESP 18; TEMP 37.2; O2SAT 96
[2020-04-08 06:03] LABS: Anion Gap 2 mmol/L (8-16); Blood Urea Nitrogen 12 mg/dL (7-17); Carbon Dioxide 25 mmol/L (22-30); Chloride 111 mmol/L (98-107); Estimated CRCL calculation 59 ml/min; Estimated Glomerular Filt Rate > 60; Glucose 125 mg/dL (65-105); Potassium 3.2 mmol/L (3.4-5.0); Sodium 138 mmol/L (137-145)
[2020-04-08 06:12] LABS: Hematocrit 29.3 % (37.0-47.0); Hemoglobin 9.4 g/dL (12.0-15.0); Mean Corpuscular HGB Conc 32.1 g/dl (32-36); Mean Corpuscular Volume 84.2 fl (80-100); Mean Platelet Volume 10.7 fl (7.4-10.4); Platelet Count Result 172 k/mm3 (150-375); Red Blood Count 3.48 M/mm3 (4.2-5.4); Red Cell Distribution Width 14.6 % (11.5-14.5); White Blood Count 8.3 K/mm3 (4.5-10.0)
[2020-04-08] MEDS: LOSARTAN POTASSIUM 100 MG TABLET PO (08:12)
[2020-04-08] MEDS: POTASSIUM CHLORIDE 20 MEQ TABLET 40 MEQ PO (08:13)
[2020-04-08] MEDS: FAMOTIDINE 20 MG TABLET PO ×2 (08:14→20:09)
[2020-04-08] MEDS: POTASSIUM PHOS/SODIUM PHOS 250 MG TABLET PO ×2 (08:14→18:45)
[2020-04-08] MEDS: amLODIPine BESYLATE 5 MG TABLET 10 MG PO (08:14)
[2020-04-08] MEDS: CELECOXIB 200 MG CAPSULE PO (08:15)
[2020-04-08] MEDS: DOCUSATE SODIUM 100 MG CAPSULE PO ×2 (08:15→18:46)
[2020-04-08] MEDS: FONDAPARINUX SODIUM 2.5 MG/0.5 ML SYRINGE SUB-Q (08:15)
--- NOTE | 2020-04-08 09:24 | PM.PNORT ---
Progress Note: A&P Assessment and Plan (1) Closed left hip fracture: Qualifiers: Encounter type: subsequent encounter Fracture healing: with routine healing Qualified Code(s): S72.002D - Fracture of unspecified part of neck of left femur, subsequent encounter for closed fracture with routine healing Code(s): S72.002A - Fracture of unspecified part of neck of left femur, initial encounter for closed fracture Status: Acute Assessment and Plan: POD #2: Left Hip Bipolar Continue PT/OT. WBAT. Walker. Continue pain control. Ice lateral hip. SCDs. Incentive Spirometry. DVT prophylaxis. Monitor dressing. Change on POD #5. Dispo: [facility] when medically stable Will arrange follow up appt for [address] Arias. Subjective Subjective Date/Time Seen: 04/08/20 09:24 No new complaints. Awaiting PT/OT this AM. Looking forward to getting out of bed to the chair. Review of Systems Constitutional: Constitutional: Reports no additional constitutional complaints, Denies excessive sweating, Denies fever(s) and Denies weight gain Eyes: Eyes: Reports no additional eye complaints and Denies change in vision ENT: Reports system reviewed and no additional complaints, except as documented and Reports Normal hearing present Cardiovascular: Cardiovascular: Denies chest pain, Denies diaphoresis, Denies leg ulcers and Denies dyspnea on exertion Respiratory: Respiratory: Reports no additional respiratory complaints, Denies cough and Denies dyspnea on exertion Gastrointestinal: Gastrointestinal: Reports no additional gastrointestinal complaints, Denies abdominal pain, Denies constipation, Denies nausea and Denies vomiting Musculoskeletal: Musculoskeletal: Reports as per HPI Integumentary/Breasts: Skin/Breast: Reports system reviewed and no additional complaints, except as docu Neurologic: Reports Normal hearing present Psychiatric: Psychiatric: Reports no additional psychiatric complaints Endocrine: Endocrine: Reports no additional endocrine complaints, Denies change in body appearance, Denies excessive sweating, Denies polyphagia, Denies polydipsia and Denies polyuria Hematologic/Lymphatic: Hematologic/Lymphatic: Reports no additional hematologic/lymphatic complaints Allergic/Immunologic: Allergic/Immunologic: Reports no additional allergic/immunologic complaints and Denies wheezing Exam Const: General: comfortable and no acute distress Resp: Effort & Inspection: normal respiratory effort Cardio: Rate: regular rate Rhythm: regular rhythm GI: Inspection: non-distended GI Palp: Yes Soft to palpation and No Tenderness to palpation present (GI) : External Female Exam: normal external appearance Urinary Catheter: Urinary Catheter: patent and draining and urine clear Skin: General skin exam: normal color Neuro: Cognition (Neuro): normal cognition Extrem: Left lower extremity: hip/thigh (Incision left hip CDI ), knee (No effusion ), lower leg (Negative Randell's Sign ), ankle (+ankle dorsiflexion/plantarflexion ) and foot (2+ pedal pulses. Sensation intact ) Details: normal capillary refill Objective Data Vital Signs Vital Signs: Vital Signs - 24 hr 04/07/20 10:21 04/07/20 14:55 04/07/20 18:00 Temperature 36.7 C 36.6 C 37.1 C Pulse Rate 97 74 104 H Respiratory Rate 24 H 18 18 Blood Pressure 138/64 134/65 135/54 L Pulse Oximetry 96 95 93 04/07/20 20:00 04/08/20 00:00 04/08/20 04:00 Temperature 36.9 C 37.2 C 37.2 C Pulse Rate 89 96 82 Respiratory Rate 20 20 18 Blood Pressure 137/72 117/54 L 141/66 H Pulse Oximetry 96 94 96 Intake/Output Intake/Output: Intake & Output 04/05/20 04/06/20 04/07/20 04/08/20 23:59 23:59 23:59 23:59 Intake Total 600 1700 3000 400 Output Total 970 1700 850 Balance 503 972 3995 -450 Meds/Results Medications: Active Medications Generic Name Dose Route Start Last Admin Trade Name Freq PRN Reason Stop Dose Admin Hydrocodone Bitart/Acetam
[2020-04-08 09:58] VITALS: BP 125/72; PULSE 87; RESP 16; TEMP 36.9; O2SAT 96
--- NOTE | 2020-04-08 10:21 | PM.IMPN ---
Progress Note: A&P Assessment and Plan (1) Closed left hip fracture: Qualifiers: Encounter type: subsequent encounter Fracture healing: with routine healing Qualified Code(s): S72.002D - Fracture of unspecified part of neck of left femur, subsequent encounter for closed fracture with routine healing Code(s): S72.002A - Fracture of unspecified part of neck of left femur, initial encounter for closed fracture Status: Acute Assessment and Plan: Due to mechanical fall -underwent a left hip bipolar hemiarthroplasty 04/06/20 -continue Arixtra for DVT prophylaxis -continue pain medications, DVT prophylaxis, PT and OT per ortho -pain is well controlled today -awaiting discharge disposition [facility] versus SNF -hemoglobin dropped a little this morning, will do a repeat H&H at noon. No signs of bleeding (2) Pneumonia: Code(s): J18.9 - Pneumonia, unspecified organism Status: Acute Assessment and Plan: Chest x-ray shows left-sided pneumonia although patient has not had any symptoms such as cough or fever prior to admission -no antibiotics were given at 1st but the patient did start to have a fever 04/06/20 and antibiotics were started -COVID negative -no further fevers, influenza less likely -continue IV antibiotics while here and then transition at discharge (3) HTN (hypertension) with goal to be determined: Code(s): I10 - Essential (primary) hypertension Status: Chronic Assessment and Plan: Last blood pressure 125/72 -continue Norvasc and losartan (4) Mentally challenged: Code(s): F79 - Unspecified intellectual disabilities Status: Chronic Assessment and Plan: She is pretty active and able to hold a conversation -lives with her son Subjective Date/time seen: 04/08/20 10:21 Interval history: Pt is a female here for hip fracture. Patient was seen today and is in good spirits. She has no complaints. She says she is eating and drinking well and has no nausea, vomiting or diarrhea. She has not had a bowel movement since being here. She said her hip pain is relatively well controlled and not bothering her at this time. She still denies cough or shortness of breath. Pt also denies fevers, chills, chest pain, or abdominal pain. Exam Narrative: Exam Narrative: General: Well developed well nourished patient in NAD HEENT: normocephalic Neck: supple Neuro: Alert and oriented to herself, reason for hospitalization, and place but did not know the year or president. I do think this is due to her intellectual disability CV:RRR Resp: CTA Abd: Soft, non distended. No pain to palpation. Positive bowel sounds Extremities: No erythema, swelling, or pain to palpation to the lower extremities. Sensation and pulses intact. Bandage over her left hip without erythema, dehiscence or discharge. No signs of hematoma Objective Data Vital Signs Vital Signs: Vital Signs - 24 hr 04/07/20 14:55 04/07/20 18:00 04/07/20 20:00 Temperature 97.9 F 98.8 F 98.4 F Pulse Rate 74 104 H 89 Respiratory Rate 18 18 20 Blood Pressure 134/65 135/54 L 137/72 Pulse Oximetry 95 93 96 04/08/20 00:00 04/08/20 04:00 04/08/20 09:58 Temperature 98.9 F 98.9 F 98.4 F Pulse Rate 96 82 87 Respiratory Rate 20 18 16 Blood Pressure 117/54 L 141/66 H 125/72 Pulse Oximetry 94 96 96 Intake/Output Intake/Output: Intake & Output 04/05/20 04/06/20 04/07/20 04/08/20 23:59 23:59 23:59 23:59 Intake Total 600 1700 3000 520 Output Total 970 1700 850 Balance 262 280 1028 -330 Meds/Results Medications: Active Medications Generic Name Dose Route Start Last Admin Trade Name Freq PRN Reason Stop Dose Admin Hydrocodone Bitart/Acetaminophen 1 tab 04/06/20 18:18 04/07/20 17:37 Hydrocodone/Acetaminophen (*Crx) 7.5-325 Mg Tablet PO 1 tab Q3H PRN Administration Pain Rated 4-6 Amlodipine Besylate 10 mg 04/07/20 09:00 04/08/20 08:14 Amlodipi
[2020-04-08 11:35] LABS: Hematocrit 30.4 % (37.0-47.0); Hemoglobin 9.8 g/dL (12.0-15.0)
[2020-04-08 14:11] VITALS: BP 128/72; PULSE 93; RESP 14; TEMP 36.9; O2SAT 98
--- NOTE | 2020-04-08 15:40 | PC.NURSE ---
On 04/08/20, the student, [ Bobby Pedroza], provided care and completed [facility] documentation on this patient. I have reviewed the student's documentation and agree with the findings.
[2020-04-08 20:00] VITALS: PULSE 86; RESP 18; O2SAT 97
[2020-04-08 21:39] VITALS: BP 127/90; PULSE 86; RESP 18; TEMP 37.1; O2SAT 97
[2020-04-09 05:44] LABS: Hematocrit 29.6 % (37.0-47.0); Hemoglobin 9.6 g/dL (12.0-15.0)
[2020-04-09 05:46] LABS: Anion Gap 4 mmol/L (8-16); Blood Urea Nitrogen 10 mg/dL (7-17); Calcium 9.7 mg/dL (8.4-10.2); Carbon Dioxide 25 mmol/L (22-30); Chloride 111 mmol/L (98-107); Estimated CRCL calculation 59 ml/min; Estimated Glomerular Filt Rate > 60; Glucose 130 mg/dL (65-105); Potassium 3.4 mmol/L (3.4-5.0); Sodium 140 mmol/L (137-145)
[2020-04-09 05:52] VITALS: BP 150/65; PULSE 80; RESP 15; TEMP 36.9; O2SAT 97
[2020-04-09] MEDS: FAMOTIDINE 20 MG TABLET PO ×2 (08:00→20:01)
[2020-04-09] MEDS: POTASSIUM PHOS/SODIUM PHOS 250 MG TABLET PO ×2 (08:00→16:03)
[2020-04-09] MEDS: amLODIPine BESYLATE 5 MG TABLET 10 MG PO (08:00)
[2020-04-09] MEDS: DOCUSATE SODIUM 100 MG CAPSULE PO ×2 (08:00→16:03)
[2020-04-09] MEDS: CELECOXIB 200 MG CAPSULE PO (08:00)
[2020-04-09] MEDS: LOSARTAN POTASSIUM 100 MG TABLET PO (08:00)
[2020-04-09] MEDS: FONDAPARINUX SODIUM 2.5 MG/0.5 ML SYRINGE SUB-Q (08:00)
[2020-04-09] MEDS: MAGNESIUM HYDROXIDE SUSP 30 ML UDC PO (09:14)
[2020-04-09] MEDS: POTASSIUM CHLORIDE 20 MEQ TABLET PO (09:14)
[2020-04-09] MEDS: HYDROcodone/acetaminophen (*CRX) 7.5-325 MG TABLET 1 TAB PO (10:31)
--- NOTE | 2020-04-09 10:37 | PM.PNORT ---
Progress Note: A&P Assessment and Plan (1) Closed left hip fracture: Qualifiers: Encounter type: subsequent encounter Fracture healing: with routine healing Qualified Code(s): S72.002D - Fracture of unspecified part of neck of left femur, subsequent encounter for closed fracture with routine healing Code(s): S72.002A - Fracture of unspecified part of neck of left femur, initial encounter for closed fracture Status: Acute Assessment and Plan: POD #3: Left Hip Bipolar Continue PT/OT. WBAT. Walker. Continue pain control. Ice lateral hip. RN notified of needs. SCDs. Incentive Spirometry. DVT prophylaxis. Monitor dressing. Change on POD #5. Dispo: [facility] when medically stable Follow up arranged for 6 weeks post op with Dr. Arias. Time Spent With Patient Time with patient: less than 15 minutes Subjective Subjective Date/Time Seen: 04/09/20 10:37 No new complaints. Endorses pain lateral hip. Awaiting pain medication by RN this AM. Also hoping for ice to the lateral hip. Review of Systems Constitutional: Constitutional: Reports no additional constitutional complaints, Denies excessive sweating, Denies fever(s) and Denies weight gain Eyes: Eyes: Reports no additional eye complaints and Denies change in vision ENT: Reports system reviewed and no additional complaints, except as documented and Reports Normal hearing present Cardiovascular: Cardiovascular: Denies chest pain, Denies diaphoresis, Denies leg ulcers and Denies dyspnea on exertion Respiratory: Respiratory: Reports no additional respiratory complaints, Denies cough and Denies dyspnea on exertion Gastrointestinal: Gastrointestinal: Reports no additional gastrointestinal complaints, Denies abdominal pain, Denies constipation, Denies nausea and Denies vomiting Musculoskeletal: Musculoskeletal: Reports as per HPI Integumentary/Breasts: Skin/Breast: Reports system reviewed and no additional complaints, except as docu Neurologic: Reports Normal hearing present Psychiatric: Psychiatric: Reports no additional psychiatric complaints Endocrine: Endocrine: Reports no additional endocrine complaints, Denies change in body appearance, Denies excessive sweating, Denies polyphagia, Denies polydipsia and Denies polyuria Hematologic/Lymphatic: Hematologic/Lymphatic: Reports no additional hematologic/lymphatic complaints Allergic/Immunologic: Allergic/Immunologic: Reports no additional allergic/immunologic complaints and Denies wheezing Exam Const: General: comfortable and no acute distress Resp: Effort & Inspection: normal respiratory effort Cardio: Rate: regular rate Rhythm: regular rhythm GI: Inspection: non-distended GI Palp: Yes Soft to palpation and No Tenderness to palpation present (GI) : External Female Exam: normal external appearance Urinary Catheter: Urinary Catheter: patent and draining and urine clear Skin: General skin exam: normal color Neuro: Cognition (Neuro): normal cognition Extrem: Left lower extremity: hip/thigh (Incision left hip CDI ), knee (No effusion ), lower leg (Negative Randell's Sign ), ankle (+ankle dorsiflexion/plantarflexion ) and foot (2+ pedal pulses. Sensation intact ) Details: normal capillary refill Objective Data Vital Signs Vital Signs: Vital Signs - 24 hr 04/08/20 14:11 04/08/20 20:00 04/08/20 21:39 Temperature 36.9 C 37.1 C Pulse Rate 93 86 86 Respiratory Rate 14 18 18 Blood Pressure 128/72 127/90 Pulse Oximetry 98 97 97 04/09/20 05:52 Temperature 36.9 C Pulse Rate 80 Respiratory Rate 15 Blood Pressure 150/65 H Pulse Oximetry 97 Intake/Output Intake/Output: Intake & Output 04/06/20 04/07/20 04/08/20 04/09/20 23:59 23:59 23:59 23:59 Intake Total 1700 3000 1600 610 Output Total 970 1700 1250 Balance 730 1300 350 610 Meds/Results Medications: Active Medications Generic Name Dose Route Start Last Admin Trade Name Freq PRN Reason Stop Dose Admin Hy
--- NOTE | 2020-04-09 11:02 | PM.IMPN ---
Progress Note: A&P Assessment and Plan (1) Discharge planning issues: Code(s): Z02.9 - Encounter for administrative examinations, unspecified Status: Acute Assessment and Plan: Waiting for insurance authorization -currently appealing [facility] denial (2) Closed left hip fracture: Qualifiers: Encounter type: subsequent encounter Fracture healing: with routine healing Qualified Code(s): S72.002D - Fracture of unspecified part of neck of left femur, subsequent encounter for closed fracture with routine healing Code(s): S72.002A - Fracture of unspecified part of neck of left femur, initial encounter for closed fracture Status: Acute Assessment and Plan: Due to mechanical fall -underwent a left hip bipolar hemiarthroplasty 04/06/20 -continue Arixtra for DVT prophylaxis -continue pain medications, DVT prophylaxis, PT and OT per ortho -pain is well controlled today -awaiting discharge disposition [facility] versus SNF -hemoglobin stable (3) Pneumonia: Code(s): J18.9 - Pneumonia, unspecified organism Status: Acute Assessment and Plan: Chest x-ray shows left-sided pneumonia although patient has not had any symptoms such as cough or fever prior to admission -no antibiotics were given at 1st but the patient did start to have a fever 04/06/20 and antibiotics were started -COVID negative -no further fevers, influenza less likely -continue IV antibiotics while here and then transition at discharge (4) HTN (hypertension) with goal to be determined: Code(s): I10 - Essential (primary) hypertension Status: Chronic Assessment and Plan: Last blood pressure 150/65 prior to home medications this morning -continue Norvasc and losartan (5) Mentally challenged: Code(s): F79 - Unspecified intellectual disabilities Status: Chronic Assessment and Plan: She is pretty active and able to hold a conversation -lives with her son Subjective Date/time seen: 04/09/20 11:02 Interval history: Pt is a female here for hip fracture. Patient was seen today and is in good spirits. She has no complaints. She still has not had a bowel movement but took some medicine today and thinks she will go a little later. She is eating and drinking okay with no nausea, vomiting or abdominal pain. She has some hip pain but overall doing okay. Denies cough, fevers, chills, chest pain or shortness of breath. Exam Narrative: Exam Narrative: General: Well developed well nourished patient in NAD HEENT: normocephalic Neck: supple Neuro: Alert and oriented to herself, reason for hospitalization, and place but did not know the year or president. I do think this is due to her intellectual disability CV:RRR Resp: CTA Abd: Soft, non distended. No pain to palpation. Positive bowel sounds Extremities: No erythema, swelling, or pain to palpation to the lower extremities. Sensation and pulses intact. Bandage over her left hip without erythema, dehiscence or discharge. No signs of hematoma Objective Data Vital Signs Vital Signs: Vital Signs - 24 hr 04/08/20 14:11 04/08/20 20:00 04/08/20 21:39 Temperature 98.5 F 98.7 F Pulse Rate 93 86 86 Respiratory Rate 14 18 18 Blood Pressure 128/72 127/90 Pulse Oximetry 98 97 97 04/09/20 05:52 Temperature 98.4 F Pulse Rate 80 Respiratory Rate 15 Blood Pressure 150/65 H Pulse Oximetry 97 Intake/Output Intake/Output: Intake & Output 04/06/20 04/07/20 04/08/20 04/09/20 23:59 23:59 23:59 23:59 Intake Total 1700 3000 1600 610 Output Total 970 1700 1250 Balance 730 1300 350 610 Meds/Results Medications: Active Medications Generic Name Dose Route Start Last Admin Trade Name Freq PRN Reason Stop Dose Admin Hydrocodone Bitart/Acetaminophen 1 tab 04/06/20 18:18 04/09/20 10:31 Hydrocodone/Acetaminophen (*Crx) 7.5-325 Mg Tablet PO 1 tab Q3H PRN Administration Pain Rated 4-6 Amlo
[2020-04-09 15:08] VITALS: BP 127/78; PULSE 86; RESP 18; TEMP 36.4; O2SAT 97
[2020-04-09 20:00] VITALS: BP 145/79; PULSE 97; RESP 20; TEMP 37.3; O2SAT 97
[2020-04-10 04:00] VITALS: BP 151/81; PULSE 76; RESP 20; TEMP 36.8; O2SAT 98
[2020-04-10 06:48] LABS: Anion Gap 5 mmol/L (8-16); Blood Urea Nitrogen 13 mg/dL (7-17); Calcium 9.9 mg/dL (8.4-10.2); Carbon Dioxide 27 mmol/L (22-30); Chloride 111 mmol/L (98-107); Estimated CRCL calculation 52 ml/min; Estimated Glomerular Filt Rate > 60; Glucose 125 mg/dL (65-105); Phosphorus 2.8 mg/dL (2.5-4.5); Potassium 3.8 mmol/L (3.4-5.0); Sodium 143 mmol/L (137-145)
[2020-04-10] MEDS: CELECOXIB 200 MG CAPSULE PO (08:40)
[2020-04-10] MEDS: LOSARTAN POTASSIUM 100 MG TABLET PO (08:40)
[2020-04-10] MEDS: FONDAPARINUX SODIUM 2.5 MG/0.5 ML SYRINGE SUB-Q (08:40)
[2020-04-10] MEDS: DOCUSATE SODIUM 100 MG CAPSULE PO ×2 (08:40→17:45)
[2020-04-10] MEDS: FAMOTIDINE 20 MG TABLET PO ×2 (08:40→21:00)
[2020-04-10] MEDS: amLODIPine BESYLATE 5 MG TABLET 10 MG PO (08:40)
[2020-04-10] MEDS: POTASSIUM PHOS/SODIUM PHOS 250 MG TABLET PO ×2 (08:40→17:45)
[2020-04-10] MEDS: HYDROcodone/acetaminophen (*CRX) 7.5-325 MG TABLET 1 TAB PO ×2 (08:40→21:09)
--- NOTE | 2020-04-10 10:38 | PM.IMPN ---
Progress Note: A&P Assessment and Plan (1) Discharge planning issues: Code(s): Z02.9 - Encounter for administrative examinations, unspecified Status: Acute Assessment and Plan: Waiting for insurance authorization -currently appealing [facility] denial (2) Closed left hip fracture: Qualifiers: Encounter type: subsequent encounter Fracture healing: with routine healing Qualified Code(s): S72.002D - Fracture of unspecified part of neck of left femur, subsequent encounter for closed fracture with routine healing Code(s): S72.002A - Fracture of unspecified part of neck of left femur, initial encounter for closed fracture Status: Acute Assessment and Plan: Due to mechanical fall -underwent a left hip bipolar hemiarthroplasty 04/06/20 -continue Arixtra for DVT prophylaxis -continue pain medications, DVT prophylaxis, PT and OT per ortho -pain is well controlled today -awaiting discharge disposition [facility] versus SNF -hemoglobin stable -Added miralax to help facilitate BM (3) Pneumonia: Code(s): J18.9 - Pneumonia, unspecified organism Status: Acute Assessment and Plan: Chest x-ray shows left-sided pneumonia although patient has not had any symptoms such as cough or fever prior to admission -no antibiotics were given at 1st but the patient did start to have a fever 04/06/20 and antibiotics were started -COVID negative -no further fevers, influenza less likely -continue IV antibiotics (day 5) while here and then transition at discharge (4) HTN (hypertension) with goal to be determined: Code(s): I10 - Essential (primary) hypertension Status: Chronic Assessment and Plan: Last blood pressure 151/81 prior to home medications this morning -continue Norvasc and losartan (5) Mentally challenged: Code(s): F79 - Unspecified intellectual disabilities Status: Chronic Assessment and Plan: She is pretty active and able to hold a conversation -lives with her son Subjective Date/time seen: 04/10/20 10:38 Interval history: Pt is a female here for hip fracture. Patient was seen today and is in good spirits. She has no complaints but has not had a BM still. She is eating and drinking okay with no nausea, vomiting or abdominal pain. She has some hip pain but overall doing okay. Denies cough, fevers, chills, chest pain or shortness of breath. Exam Narrative: Exam Narrative: General: Well developed well nourished patient in NAD HEENT: normocephalic Neck: supple Neuro: Alert and oriented to herself, reason for hospitalization, and place but did not know the year or president. I do think this is due to her intellectual disability CV:RRR Resp: CTA Abd: Soft, non distended. No pain to palpation. Positive bowel sounds Extremities: No erythema, swelling, or pain to palpation to the lower extremities. Sensation and pulses intact. Bandage over her left hip without erythema, dehiscence or discharge. No signs of hematoma Objective Data Vital Signs Vital Signs: Vital Signs - 24 hr 04/09/20 15:08 04/09/20 20:00 04/10/20 04:00 Temperature 97.6 F 99.1 F 98.2 F Pulse Rate 86 97 76 Respiratory Rate 18 20 20 Blood Pressure 127/78 145/79 H 151/81 H Pulse Oximetry 97 97 98 Intake/Output Intake/Output: Intake & Output 04/07/20 04/08/20 04/09/20 04/10/20 23:59 23:59 23:59 23:59 Intake Total 3000 1600 1750 220 Output Total 1700 1250 850 Balance 0193 885 2307 -630 Meds/Results Medications: Active Medications Generic Name Dose Route Start Last Admin Trade Name Freq PRN Reason Stop Dose Admin Hydrocodone Bitart/Acetaminophen 1 tab 04/06/20 18:18 04/10/20 08:40 Hydrocodone/Acetaminophen (*Crx) 7.5-325 Mg Tablet PO 1 tab Q3H PRN Administration Pain Rated 4-6 Amlodipine Besylate 10 mg 04/07/20 09:00 04/10/20 08:40 Amlodipine Besylate 5 Mg Tablet PO 10 mg DAILY YOVANNY Administration Mena
[2020-04-10] MEDS: MAGNESIUM HYDROXIDE SUSP 30 ML UDC PO (11:20)
[2020-04-10] MEDS: polyethylene glycoL 3350 17 GM POWD.PACK PO (11:20)
[2020-04-10 14:55] VITALS: BP 130/68; PULSE 78; RESP 16; TEMP 36.8; O2SAT 96
[2020-04-10 20:00] VITALS: BP 133/76; PULSE 85; RESP 20; TEMP 36.6; O2SAT 96
[2020-04-10 20:38] LABS: SARS-CoV-2 RNA PCR Negative
[2020-04-11 04:00] VITALS: BP 119/88; PULSE 78; RESP 20; TEMP 36.6; O2SAT 96
[2020-04-11 05:52] LABS: Hematocrit 30.9 % (37.0-47.0); Hemoglobin 9.9 g/dL (12.0-15.0); Mean Corpuscular Hemoglobin 27.4 pg (26-34); Mean Corpuscular Volume 85.6 fl (80-100); Mean Platelet Volume 9.7 fl (7.4-10.4); Platelet Count Result 255 k/mm3 (150-375); Red Blood Count 3.61 M/mm3 (4.2-5.4); Red Cell Distribution Width 14.5 % (11.5-14.5); White Blood Count 5.4 K/mm3 (4.5-10.0)
[2020-04-11 06:08] LABS: Anion Gap 1 mmol/L (8-16); Blood Urea Nitrogen 17 mg/dL (7-17); Carbon Dioxide 33 mmol/L (22-30); Chloride 108 mmol/L (98-107); Estimated CRCL calculation 46 ml/min; Estimated Glomerular Filt Rate > 60; Glucose 125 mg/dL (65-105); Potassium 3.8 mmol/L (3.4-5.0); Sodium 142 mmol/L (137-145)
[2020-04-11] MEDS: amLODIPine BESYLATE 5 MG TABLET 10 MG PO (08:36)
[2020-04-11] MEDS: DOCUSATE SODIUM 100 MG CAPSULE PO (08:37)
[2020-04-11] MEDS: HYDROcodone/acetaminophen (*CRX) 7.5-325 MG TABLET 1 TAB PO (08:37)
[2020-04-11] MEDS: LOSARTAN POTASSIUM 100 MG TABLET PO (08:37)
[2020-04-11] MEDS: CELECOXIB 200 MG CAPSULE PO (08:37)
[2020-04-11] MEDS: FAMOTIDINE 20 MG TABLET PO (08:37)
[2020-04-11] MEDS: polyethylene glycoL 3350 17 GM POWD.PACK PO (08:37)
[2020-04-11] MEDS: FONDAPARINUX SODIUM 2.5 MG/0.5 ML SYRINGE SUB-Q (08:37)
[2020-04-11] MEDS: POTASSIUM PHOS/SODIUM PHOS 250 MG TABLET PO (08:37)
--- NOTE | 2020-04-11 08:47 | PM.DS ---
DS: Admitting Diagnosis Admitting Diagnosis Admitting Diagnosis: left hip fracture DS: Discharge Diagnosis Discharge Diagnosis (1) Closed left hip fracture: Qualifiers: Encounter type: subsequent encounter Fracture healing: with routine healing Qualified Code(s): S72.002D - Fracture of unspecified part of neck of left femur, subsequent encounter for closed fracture with routine healing Code(s): S72.002A - Fracture of unspecified part of neck of left femur, initial encounter for closed fracture Status: Acute Assessment and Plan: Due to mechanical fall -underwent a left hip bipolar hemiarthroplasty 04/06/20 -continue Arixtra for DVT prophylaxis x 4 weeks total -pain is well controlled today -discharged to [facility] -hemoglobin stable -Last bm 04/11/20 (2) Pneumonia: Code(s): J18.9 - Pneumonia, unspecified organism Status: Acute Assessment and Plan: Chest x-ray shows left-sided pneumonia although patient has not had any symptoms such as cough or fever prior to admission -no antibiotics were given at first but the patient did start to have a fever 04/06/20 and antibiotics were started -COVID negative -no further fevers, influenza less likely -abx completed (3) HTN (hypertension) with goal to be determined: Code(s): I10 - Essential (primary) hypertension Status: Chronic Assessment and Plan: Last blood pressure 121/70 -continue Norvasc and losartan (4) Mentally challenged: Code(s): F79 - Unspecified intellectual disabilities Status: Chronic Assessment and Plan: She is pretty active and able to hold a conversation -lives with her son DS: Summary Hospital Course Hospital Course: Patient is a 74-year-old female who presented emergency room after a fall after slipping on a newspaper with immediate pain to left hip. Temperature 36.7? C, pulse 95, respiratory rate 18, blood pressure 143/77, pulse ox 90. White blood cell count initially 11.9, hemoglobin 10.2, hematocrit 31.5, glucose relatively normal with the exception of chloride 112 and glucose 120. Hip x-ray showed subcapital fracture of the left femur and chest x-ray showed mild airspace opacities in left mid and lower lung zones consistent with atelectasis versus pneumonia. Patient was admitted to the hospitalist service and seen by ortho and underwent at left hip bipolar hemiarthroplasty April 06, 2020. She does well with this with no complications. As for her chest x-ray findings, initially she was started on antibiotics but the 1st night she was here she had a fever and she was given 5 days of antibiotics. The day of discharge she had no complaints and was doing well. her hospitalization was prolonged due to insurance authorization. She was educated about the worrisome signs and symptoms come back to emergency room for and was discharged stable condition to [facility] Status at Discharge Functional status at discharge: uses cane/walker Overall status at discharge: patient is progressing back to baseline Time Spent with Patient Time attestation: Total time spent providing and/or coordinating discharge services:34 min Time spent: Greater than 30 minutes Exam Narrative: Exam Narrative: General: Well developed well nourished patient in NAD HEENT: normocephalic Neck: supple Neuro: Alert and oriented to herself, reason for hospitalization, and place but did not know the year or president. I do think this is due to her intellectual disability CV:RRR Resp: CTA Abd: Soft, non distended. No pain to palpation. Positive bowel sounds Extremities: No erythema, swelling, or pain to palpation to the lower extremities. Sensation and pulses intact. Bandage over her left hip without erythema, dehiscence or discharge. No signs of hematoma DS: Data Data Completed and Pending Labs on day of discharge: Labs from last 24 hours 04/11/20 04/11/20 04/10/20 05:27 05:27 02:54 WBC 5.4 RBC
[2020-04-11 14:17] VITALS: BP 121/70; PULSE 88; RESP 16; TEMP 37.2; O2SAT 97
--- NOTE | 2020-04-23 09:04 | PC.NURSE ---
blood cx are negative
== END 2020-04-11 15:20 | DRG 521 ==
LOC: ANHED 17:13 → ANH2MED 23:47
PROVIDERS: Emergency Medicine; Emergency Medicine Emergency Medical Services; Internal Medicine; Nurse Practitioner; Orthopaedic Surgery; Admitting Provider Internal Medicine; Emergency Provider Emergency Medicine; PCP Internal Medicine; Visit Provider Physician Assistant
PROC: 0SRS01A Replacement of Left Hip Joint, Femoral Surface with Metal Synthetic Substitute, Uncemented, Open Approach (ICD-10-PCS; CPT 27125; principal; 2020-04-06 14:00)
PROC: 0SRS01A Replacement of Left Hip Joint, Femoral Surface with Metal Synthetic Substitute, Uncemented, Open Approach (ICD-10-PCS; CPT 27130; 2020-04-06 14:00)
DX: S72.012A Unspecified intracapsular fracture of left femur, initial encounter for closed fracture (principal); J18.9 Pneumonia, unspecified organism; Z20.822 Contact with and (suspected) exposure to COVID-19; M16.0 Bilateral primary osteoarthritis of hip; I10 Essential (primary) hypertension; F79 Unspecified intellectual disabilities; W01.0XXA Fall on same level from slipping, tripping and stumbling without subsequent striking against object, initial encounter; Z79.899 Other long term (current) drug therapy; Z87.891 Personal history of nicotine dependence
CPT/HCPCS: 36415; 71045; 73501; 73502; 80048; 80053; 81001; 82728; 83036; 83615; 83735; 84100; 85014; 85018; 85025; 85027; 85610; 85730; 86140; 86850; 86900; 86901; 87040; 93005; 94762; 96365; 97110; 97116; 97161; 97165; 97530; 97535; 99285; A9270; C1776; C9803; J0131; J0171; J0360; J0456; J0690; J0696; J1100; J1652; J2270; J2370; J2405; J2704; J2795; J3010; J3480; J7030; J7040; J7060; J7120; U0003; U0005

== ENCOUNTER 2020-04-11 16:03 | IRF | payer MEDICARE, SELFPAY ==
--- NOTE | 2020-04-11 15:20 | ADMGEN ---
This patient, Kimberley Peng, [facility]. Patient/family oriented to hospital policies and general routines including ID bracelet, bed and alarms, visiting hours, pain management, procedures, bathroom and other care routines, personal items, smoking policy, room service/diet, and visiting hours. Information on how to activate the Rapid Response Team has been discussed. Patient/Family are encouraged to report perceived risks to care and to ask questions if they do not understand what they are told or what they should do.
[2020-04-11 16:17] VITALS: PULSE 86; RESP 18; TEMP 36.9; O2SAT 98
--- NOTE | 2020-04-11 16:47 | PCRCNOTE ---
Pt previously instructed on use and proper technique of IS. Pt encouraged to use on own.
[2020-04-11 20:49] VITALS: BP 142/78; PULSE 88; RESP 18; TEMP 36.6; O2SAT 96
[2020-04-11] MEDS: ACETAMINOPHEN 325 MG TABLET 650 MG PO (21:18)
[2020-04-12 01:46] VITALS: BMI 20.9
[2020-04-12 05:04] LABS: Basophils Percent Auto 0.6 % (0.2-1.2); Eosinophils Percent Auto 0.2 % (0-4.4); Hematocrit 31.4 % (37.0-47.0); Immature Granulocyte Absolute 0.04 K/mm3 (0.00-0.031); Immature Granulocyte Percent A 0.7 % (0-0.5); Lymphocytes Absolute Auto 1.15 K/mm3 (0.9-3.2); Lymphocytes Percent Auto 21.1 % (18.3-44.2); Mean Corpuscular HGB Conc 31.8 g/dl (32-36); Mean Corpuscular Hemoglobin 27.4 pg (26-34); Mean Platelet Volume 9.6 fl (7.4-10.4); Monocytes Absolute Auto 0.6 K/mm3 (0.1-0.6); Monocytes Percent Auto 11.4 % (2.6-8.5); Neutrophils Absolute Auto 3.6 K/mm3 (1.3-6.7); Platelet Count Result 288 k/mm3 (150-375); Red Blood Count 3.65 M/mm3 (4.2-5.4); Red Cell Distribution Width 14.3 % (11.5-14.5); White Blood Count 5.4 K/mm3 (4.5-10.0)
[2020-04-12 05:21] LABS: Anion Gap 1 mmol/L (8-16); Blood Urea Nitrogen 17 mg/dL (7-17); Calcium 9.9 mg/dL (8.4-10.2); Carbon Dioxide 32 mmol/L (22-30); Chloride 108 mmol/L (98-107); Estimated CRCL calculation 52 ml/min; Estimated Glomerular Filt Rate > 60; Glucose 121 mg/dL (65-105); Potassium 3.8 mmol/L (3.4-5.0); Sodium 141 mmol/L (137-145)
[2020-04-12 05:35] VITALS: BP 132/64; PULSE 77; RESP 18; TEMP 36.9; O2SAT 97
[2020-04-12] MEDS: amLODIPine BESYLATE 5 MG TABLET 10 MG PO (08:29)
[2020-04-12] MEDS: LOSARTAN POTASSIUM 100 MG TABLET PO (08:29)
[2020-04-12] MEDS: FONDAPARINUX SODIUM 2.5 MG/0.5 ML SYRINGE SUB-Q (08:30)
[2020-04-12] MEDS: HYDROcodone/acetaminophen (*CRX) 7.5-325 MG TABLET 1 TAB PO ×2 (08:34→18:26)
--- NOTE | 2020-04-12 10:58 | WPDREHABHP ---
H&P: HPI History of Present Illness Date/Time: 04/12/20 10:58 Chief Complaint: left hip fracture Narrative: Kimberley Peng is a 74 year old female HISTORY OF PRESENT ILLNESS:74 years old has been admitted to the rehab floor with the primary rehab impairment category of 0 3-[id number]-[id number] extremity fracture and etiological diagnosis of subcapital fracture of the left femur neck. the patient was seen [id number] on April 12, 2020 at 10:00 a.m. 74 years old female with history of intellectual disability who lives with her son came to the emergency room at [facility] following a fall on April 05, 2020. She reported she has slid on some papers at home and landed on her left hip. Initial lab work was remarkable for WBC is 12.2, chloride 111, BUN 18, creatinine 0.50, glucose 154, and calcium 10.3. Hip and pelvic x-rays revealed a subcapital fracture of the left femur neck and mild osteoarthritis of the hips. A chest x-ray revealed mild airspace opacities and left mid and lower lung zones consistent with atelectasis versus pneumonia. EKG reveals sinus rhythm and first-degree AV block. Orthopedics were consulted and saw the patient on April 06, 2020, the patient consented and underwent a left hip bipolar hemiarthroplasty performed by Dr. Oni gonzalez. Dropped pretty of hip x-rays revealed bipolar left hip hemiarthroplasty in near anatomic alignment. Antibiotic were restarted for pneumonia and fever postop with occurrence of 100.1 on April 06, 2020. The patient's hypertension was controlled with Norvasc and losartan. Postop complications have included ABLA , acute postoperative pain, hypertension, pneumonia, hypertension, leukocytosis, hypokalemia, AKA eye, hyperglycemia, hypercalcemia, hypophosphatemia, hypoproteinemia, hypoalbuminemia, and hyperchloremia. on April 11, 2020 the patient worked well with therapy and was a moderate assist of 1 for transfer, minimum assist of 1 for ambulation of 40ft and minimal to moderate assist for ADLs. The patient is on Arixtra 2.5 mg daily for DVT prophylaxis. Patient to follow-up with PCP in 1 to 2 weeks after discharge from rehab. Orthopedic surgeon recommended do weight-bearing at touch toe to left lower extremity, change dressing on pod 5, dressing on pod 14 and allow Steri-Strips to follow off naturally. Dr. Bc Alfredo overt prefer orthopedic follow-up scheduled for 6 weeks. #COVID: The patient has not traveled outside the [place] air head contact with someone who is ill that has traveled outside the [place] in the past 21 days. The patient has not traveled to an area of the [place] that is experiencing known transmission of the Coronavirus and has not had close personal contact with anyone that has. The patient does not currently have a fever. She tested negative for COVID-19 on April 07, 2020 and April 10, 2020 Therapy was initiated at the acute care facility and the patient transferred to us from [[facility]] on April 11, 2020 FALLS OR SURGERIES: the patient has had major surgeries this in the last 100 days. The patient has had falls in the past year. The patient has had falls with injury in the past year. PAST MEDICAL HISTORY: Hypertension, intellectually disabled. PAST SURGICAL HISTORY: None SOCIAL HISTORY: the patient is a former smoker that quit in 2014. She denies alcohol and substance abuse. FAMILY HISTORY: Father has history of cancer heart attack and hypertension. Son has hypertension. Sibling has sleep apnea. PRIOR LEVEL OF FUNCTION: Eating was [INDEPENDENT] Oral Care was [INDEPENDENT] Toileting Hygiene was [INDEPENDENT] Shower/Bathing was [INDEPENDENT] Upper Body Dressing was [INDEPENDENT] Lower Body Dressing was [INDEPENDENT] Donning/[employer] Footwear was [INDEPENDENT] Rolling Left and Right was [INDEPENDENT] Sit to Lying was [INDEPENDENT] Lying to Sitting was [INDEPENDENT] Sit to Stand was [INDEPENDENT] Bed to Chair Transfers was [INDE
[2020-04-12 13:51] VITALS: BMI 20.9
[2020-04-12 14:00] VITALS: BP 143/76; PULSE 87; RESP 18; TEMP 36.4; O2SAT 97
--- NOTE | 2020-04-12 14:08 | PCNSR ---
On 04/12/20, the student, Duyen King, provided care and completed [facility] documentation on this patient. I have reviewed the student's documentation and agree with the findings.
--- NOTE | 2020-04-12 14:33 | PCPTNOTE ---
Kimberley Peng was evaluated for a wheeled walker on 04/12/2020 by this physical therapist. The wheeled walker will resolve patient's mobility limitations and will be used for ADL's within the home. The patient can safely use the wheeled walker. ?The wheeled walker will resolve the patient?s mobility deficits, including decreased balance, endurance, and B LE strength.
[2020-04-12 20:12] VITALS: BP 127/73; PULSE 82; RESP 18; TEMP 37; O2SAT 97
[2020-04-13 05:25] VITALS: BP 150/61; PULSE 81; RESP 18; TEMP 36.7; O2SAT 99
[2020-04-13] MEDS: FONDAPARINUX SODIUM 2.5 MG/0.5 ML SYRINGE SUB-Q (08:09)
[2020-04-13] MEDS: LOSARTAN POTASSIUM 100 MG TABLET PO (08:09)
[2020-04-13] MEDS: amLODIPine BESYLATE 5 MG TABLET 10 MG PO (08:09)
[2020-04-13] MEDS: HYDROcodone/acetaminophen (*CRX) 7.5-325 MG TABLET 1 TAB PO ×2 (08:51→17:14)
--- NOTE | 2020-04-13 11:07 | WPDNEURORHBP ---
Subjective Date/time seen: 04/13/20 11:07 74 years old with left hip fracture in addition to history of intellectual disability has been involved in physical therapy and occupational therapy extremely pleasant remains afebrile with temp of 36.7? pulse 81 respiration 18 pulse ox 99 blood pressure 150/61, lab WBC 5.4 hemoglobin 10.0 platelet count of 288, BMP fairly normal, COVID negative on 04/10, discussing the family meeting with her son Review of Systems Review of Systems: All systems reviewed & are unremarkable except as noted in HPI and below Functional Status Ambulation Ability Ability to Ambulate 10 Feet: Minimum Assistance X 1 Ability to Ambulate 50 Feet With 2 Turns: Minimum Assistance X 1 Ambulation Assistive Devices: Walker, Wheeled Exam Const: General: cooperative, comfortable and no acute distress Nutritional Appearance: average body habitus and thin Limitations: physical limitations HENMT: Head: normocephalic Ears: hearing grossly normal bilaterally General nose exam: Normal external nose present and No nasal discharge present Face and sinus: normal facial exam Eyes: General: appearance normal, both eyes and all related structures Neck: Neck: full ROM Resp: Effort & Inspection: normal respiratory effort Auscultation: clear to auscultation bilaterally Cardio: Rate: regular rate Rhythm: regular rhythm GI: Auscultation: normal bowel sounds Neuro: General: oriented to person and oriented to place Speech: normal speech Gait exam (Neuro): Unable to assess gait Motor exam (neuro): 5/5 motor strength present throughout Objective Data Vital Signs Vital Signs: Vital Signs - 24 hr 04/12/20 14:00 04/12/20 20:12 04/13/20 05:25 Temperature 36.4 C L 37.0 C 36.7 C Pulse Rate 87 82 81 Respiratory Rate 18 18 18 Blood Pressure 143/76 H 127/73 150/61 H Pulse Oximetry 97 97 99 Intake/Output Intake/Output: Intake & Output 04/10/20 04/11/20 04/12/20 04/13/20 23:59 23:59 23:59 23:59 Intake Total 720 240 Balance 720 240 Meds/Results Medications: Active Medications Generic Name Dose Route Start Last Admin Trade Name Freq PRN Reason Stop Dose Admin Acetaminophen 650 mg 04/11/20 16:56 04/11/20 21:18 Acetaminophen 325 Mg Tablet PO 650 mg Q6H PRN Administration pain 1-4 Hydrocodone Bitart/Acetaminophen 1 tab 04/11/20 16:56 04/13/20 08:51 Hydrocodone/Acetaminophen (*Crx) 7.5-325 Mg Tablet PO 1 tab Q3H PRN Administration pain 6-10 Amlodipine Besylate 10 mg 04/12/20 09:00 04/13/20 08:09 Amlodipine Besylate 5 Mg Tablet PO 10 mg DAILY YOVANNY Administration Docusate Sodium 100 mg 04/11/20 16:56 Docusate Sodium 100 Mg Capsule PO BID PRN constipation Fondaparinux 2.5 mg 04/12/20 09:00 04/13/20 08:09 Fondaparinux Sodium 2.5 Mg/0.5 Ml Syringe SUB-Q 04/28/20 09:01 2.5 mg DAILY YOVANNY Administration Losartan Potassium 100 mg 04/12/20 09:00 04/13/20 08:09 Losartan Potassium 100 Mg Tablet PO 100 mg DAILY YOVANNY Administration Progress Note: A&P Assessment and Plan (1) Mentally challenged: Code(s): F79 - Unspecified intellectual disabilities Status: Chronic (2) Pneumonia: Code(s): J18.9 - Pneumonia, unspecified organism Status: Acute (3) HTN (hypertension) with goal to be determined: Code(s): I10 - Essential (primary) hypertension Status: Chronic (4) Fracture of hip: Code(s): S72.009A - Fracture of unspecified part of neck of unspecified femur, initial encounter for closed fracture Status: Acute (5) Closed left hip fracture: Qualifiers: Encounter type: subsequent encounter Fracture healing: with routine healing Qualified Code(s): S72.002D - Fracture of unspecified part of neck of left femur, subsequent encounter for closed fracture with routine healing Code(s): S72.002A - Fracture of unspecified part of neck of left femur, initial encounter for closed frac
[2020-04-13 14:00] VITALS: BP 142/69; PULSE 86; RESP 18; TEMP 35.9; O2SAT 95
--- NOTE | 2020-04-13 14:26 | RPD ---
INDIVIDUALIZED PLAN OF CARE FOR Kimberley Peng Brief Synthesis of Pre-Admission Screen, Post-Admission Evaluation and Therapy Evaluations: The patient presents to rehab with a subcapital fracture of the left femoral neck. Comorbidities include pneumonia, HTN, leukocytosis, ABLA, hypokalemia, ANA, hyperglycemia, hypercalcemia, hypophosphatemia, hypoproteinemia, hypoalbuminemia, and hyperchloremia. The complexity of the patient's medical management, nursing, and therapy needs require an inpatient rehab hospital stay with a physician-led interdisciplinary team approach. The patient?s needs will be best met in an intensive program vs. at a lower level of care. The patient requires physician services for medical oversight, management of postop complications in setting of present comorbidities, and pain management. She will be followed at least three times a week by the rehabilitation physician. Orthopedics may see the patient at the frequency of their discretion. Labs will be drawn to monitor blood counts and electrolytes periodically. The patient requires nursing services for DVT prophylactics, infection protection, medication management and education, pressure relief, and wound care. Deficits include:ADLs, Balance, Endurance, Family Training/Education, Mobility, Pain Management, ROM, Safety, Strength, Transfers, and MASHA Precautions. Power Tool Repairer/Case Management for: Discharge Planning and Patient/Family Counseling Physical Therapy: 5 days per week for 90 minutes. Treatments may include: Therapeutic Exercise, Gait Training, Neuromuscular Re-education, Transfer Training, Community Reintegration, Bed Mobility, Patient/Family Education, Wheelchair Mobility Group Therapy/Concurrent Therapy Rationales: -Improve attention span during functional activities in a distracted environment. -Enhance problem solving and/or adequate judgment skills during functional activities in a distracted environment. -Promote increased safety awareness in a distracted environment to reduce fall risk with functional tasks, transfers, and ambulation to allow a more safe, self-sufficient return to the home environment. -Improve dynamic balance skills to promote safety and independence with functional activities in a distracted environment for maximum gain. Occupational Therapy: 5 days per week for 90 minutes. Treatments may include: Therapeutic Exercise, Therapeutic Activity, Cognitive Training, Self-Care Transfer Training, Community Reintegration, Home Management, Patient/Family Education, Wheelchair Mobility Training, Energy Conservation Training Group Therapy/Concurrent Therapy Rationales: -Allow therapist to observe and teach generalization and carry-over of skills learned in individual therapy. -Enhance problem solving and sequencing skills during therapeutic activities in a distracted environment. -Promote increased safety awareness in a realistic setting to reduce fall risk with functional tasks due to visual and verbal distractions. -Increase functional level with ADLs, ADL transfers and use of adaptive equipment through therapeutic activities with others while promoting safety to allow a more safe, self-sufficient return home. Medical Prognosis: Good Anticipated Length of Stay: 12 days Rehab Goals: Eating Goal: 06-Independent Oral Hygiene Goal: 06-Independent Toileting Hygiene Goal: 06-Independent Shower/Bathe Self Goal: 04-Supervision or Touching Assistance Upper Body Dressing Goal: 06-Independent Lower Body Dressing Goal: 04-Supervision or Touching Assistance Putting On/Taking Off Footwear Goal: 04-Supervision or Touching Assistance Rolling Left and Right Goal: 06-Independent Sit to Lying Goal: 06-Independent Lying to Sitting on Side of Bed Goal: 06-Independent Sit to Stand Goal: 06-Independent Chair/[id number] Transfer Goal: 06-Independent Toilet Transfer Goal: 06-Independent Car Transfer Goal: 06-Independent Walk 10' Goal: 06-Independent Walk 50' with Two Turns Goal
[2020-04-13 22:00] VITALS: BP 135/69; PULSE 75; RESP 16; TEMP 36.6; O2SAT 97
[2020-04-14 06:00] VITALS: BP 140/72; PULSE 63; RESP 16; TEMP 36.7; O2SAT 97
[2020-04-14] MEDS: LOSARTAN POTASSIUM 100 MG TABLET PO (08:32)
[2020-04-14] MEDS: FONDAPARINUX SODIUM 2.5 MG/0.5 ML SYRINGE SUB-Q (08:32)
[2020-04-14] MEDS: amLODIPine BESYLATE 5 MG TABLET 10 MG PO (08:32)
[2020-04-14] MEDS: HYDROcodone/acetaminophen (*CRX) 7.5-325 MG TABLET 1 TAB PO ×2 (08:33→19:54)
[2020-04-14 14:00] VITALS: BP 150/71; PULSE 81; RESP 20; TEMP 36.8; O2SAT 97
--- NOTE | 2020-04-14 14:38 | WPDNEURORHBP ---
Subjective Date/time seen: 04/14/20 14:38 74 years old with left hip fracture and intellectually challenged has been involved the physical therapy and occupational therapy and doing fairly well remains afebrile temp 36.7? pulse 63 respirations 16 pulse ox 97 blood pressure 140/72 no new lab Review of Systems Review of Systems: All systems reviewed & are unremarkable except as noted in HPI and below Functional Status Ambulation Ability Ability to Ambulate 10 Feet: Contact Guard Ability to Ambulate 50 Feet With 2 Turns: Contact Guard Ambulation Assistive Devices: Walker, Wheeled Exam Const: General: cooperative, comfortable and no acute distress Nutritional Appearance: average body habitus Limitations: behavioral limitations HENMT: Head: normocephalic Ears: hearing grossly normal bilaterally General nose exam: Normal external nose present and No nasal discharge present Face and sinus: normal facial exam Mouth: Yes Normal oral and palatal mucosa present Eyes: General: appearance normal, both eyes and all related structures Neck: Neck: full ROM Resp: Effort & Inspection: normal respiratory effort Auscultation: clear to auscultation bilaterally Cardio: Rate: regular rate GI: Auscultation: normal bowel sounds Neuro: General: oriented to person Cranial nerves: Yes CN's II-XII intact bilaterally Speech: Other speech findings present (Neuro) Gait exam (Neuro): Assisted gait required Motor exam (neuro): 5/5 motor strength present throughout Deep tendon reflexes (DTR's): Right triceps reflex intensity grade: 1+, Left triceps reflex intensity grade: 1+, Rt Biceps (C5, C6): 1+, Left biceps reflex intensity grade: 1+, Right brachioradialis reflex intensity grade: 1+, Left brachioradialis reflex intensity grade: 1+, Right patellar reflex intensity grade: 1+ and Left patellar reflex intensity grade: 1+ Psych: Appearance: grossly normal Objective Data Vital Signs Vital Signs: Vital Signs - 24 hr 04/13/20 22:00 04/14/20 06:00 Temperature 36.6 C 36.7 C Pulse Rate 75 63 Respiratory Rate 16 16 Blood Pressure 135/69 140/72 Pulse Oximetry 97 97 Intake/Output Intake/Output: Intake & Output 04/11/20 04/12/20 04/13/20 04/14/20 23:59 23:59 23:59 23:59 Intake Total 545 720 480 Balance 720 720 480 Meds/Results Medications: Active Medications Generic Name Dose Route Start Last Admin Trade Name Freq PRN Reason Stop Dose Admin Acetaminophen 650 mg 04/11/20 16:56 04/11/20 21:18 Acetaminophen 325 Mg Tablet PO 650 mg Q6H PRN Administration pain 1-4 Hydrocodone Bitart/Acetaminophen 1 tab 04/11/20 16:56 04/14/20 08:33 Hydrocodone/Acetaminophen (*Crx) 7.5-325 Mg Tablet PO 1 tab Q3H PRN Administration pain 6-10 Amlodipine Besylate 10 mg 04/12/20 09:00 04/14/20 08:32 Amlodipine Besylate 5 Mg Tablet PO 10 mg DAILY YOVANNY Administration Docusate Sodium 100 mg 04/11/20 16:56 Docusate Sodium 100 Mg Capsule PO BID PRN constipation Fondaparinux 2.5 mg 04/12/20 09:00 04/14/20 08:32 Fondaparinux Sodium 2.5 Mg/0.5 Ml Syringe SUB-Q 04/28/20 09:01 2.5 mg DAILY YOVANNY Administration Losartan Potassium 100 mg 04/12/20 09:00 04/14/20 08:32 Losartan Potassium 100 Mg Tablet PO 100 mg DAILY YOVANNY Administration Progress Note: A&P Assessment and Plan (1) Pneumonia: Code(s): J18.9 - Pneumonia, unspecified organism Status: Acute (2) Mentally challenged: Code(s): F79 - Unspecified intellectual disabilities Status: Chronic (3) HTN (hypertension) with goal to be determined: Code(s): I10 - Essential (primary) hypertension Status: Chronic (4) Closed left hip fracture: Qualifiers: Encounter type: subsequent encounter Fracture healing: with routine healing Qualified Code(s): S72.002D - Fracture of unspecified part of neck of left femur, subsequent encounter for closed fracture with routine healing Code(
[2020-04-14 19:55] VITALS: PULSE 78; RESP 16; O2SAT 96
[2020-04-14 22:00] VITALS: BP 128/69; PULSE 78; RESP 16; TEMP 36.9; O2SAT 96
[2020-04-15 06:00] VITALS: BP 134/67; PULSE 71; RESP 16; TEMP 36.6; O2SAT 96
[2020-04-15 08:00] VITALS: PULSE 71; RESP 16; O2SAT 96
[2020-04-15] MEDS: amLODIPine BESYLATE 5 MG TABLET 10 MG PO (08:42)
[2020-04-15] MEDS: FONDAPARINUX SODIUM 2.5 MG/0.5 ML SYRINGE SUB-Q (08:43)
[2020-04-15] MEDS: HYDROcodone/acetaminophen (*CRX) 7.5-325 MG TABLET 1 TAB PO ×2 (08:43→19:54)
[2020-04-15] MEDS: LOSARTAN POTASSIUM 100 MG TABLET PO (08:43)
[2020-04-15 14:00] VITALS: BP 134/66; PULSE 87; RESP 20; TEMP 36.6; O2SAT 98
[2020-04-15 21:46] VITALS: BP 124/67; PULSE 83; RESP 18; TEMP 36.6; O2SAT 97
[2020-04-16 04:50] VITALS: BP 147/70; PULSE 64; RESP 18; TEMP 36.3; O2SAT 100
[2020-04-16 08:00] VITALS: PULSE 91; RESP 20; O2SAT 95
[2020-04-16] MEDS: LOSARTAN POTASSIUM 100 MG TABLET PO (09:10)
[2020-04-16] MEDS: FONDAPARINUX SODIUM 2.5 MG/0.5 ML SYRINGE SUB-Q (09:11)
[2020-04-16] MEDS: amLODIPine BESYLATE 5 MG TABLET 10 MG PO (09:11)
--- NOTE | 2020-04-16 13:23 | WPDNEURORHBP ---
Subjective Date/time seen: 04/16/20 13:23 status post left hip fracture and mentally challenged lady remains actively involved in a physical therapy and occupational therapy, has no new lab Review of Systems Review of Systems: All systems reviewed & are unremarkable except as noted in HPI and below Functional Status Ambulation Ability Ability to Ambulate 10 Feet: Standby Assistance Ability to Ambulate 50 Feet With 2 Turns: Standby Assistance Ability to Ambulate 150 Feet: Standby Assistance Ambulation Assistive Devices: Walker, Wheeled Exam Const: General: cooperative, comfortable and no acute distress Nutritional Appearance: average body habitus Limitations: other limitations HENMT: Head: normocephalic Ears: hearing grossly normal bilaterally General nose exam: Normal external nose present and No nasal discharge present Face and sinus: normal facial exam Mouth: Yes Normal oral and palatal mucosa present Eyes: General: appearance normal, both eyes and all related structures Neck: Neck: full ROM Resp: Effort & Inspection: normal respiratory effort Auscultation: clear to auscultation bilaterally Cardio: Jugular venous distension: no JVD Rate: regular rate Rhythm: regular rhythm GI: Auscultation: normal bowel sounds Skin: General skin exam: no rashes or lesions noted Neuro: General: oriented to person and oriented to place Cranial nerves: Yes CN's II-XII intact bilaterally Speech: dysarthria and aphasia ( dysphasia) Deep tendon reflexes (DTR's): Right triceps reflex intensity grade: 1+, Left triceps reflex intensity grade: 1+, Rt Biceps (C5, C6): 1+, Left biceps reflex intensity grade: 1+, Right brachioradialis reflex intensity grade: 1+, Left brachioradialis reflex intensity grade: 1+, Right patellar reflex intensity grade: 1+, Left patellar reflex intensity grade: 1+, Right ankle reflex intensity grade: 1+ and Left ankle reflex intensity grade: 1+ Plantar Reflex Responses: downgoing: bilateral Coordination: [id number] test normal Extrem: General: capillary refill normal Psych: Appearance: grossly normal Mental Status: other ( mentally challenged) Speech and movement: Slurred speech present and Other speech and movement exam findings present (Psych) ( dysphasic and dysarthric) Affect: normal affect Attitude: cooperative Thought process: Word salad present (speech) Insight: Fair insight present (Psych) Judgement: Fair judgement present (Psych) Objective Data Vital Signs Vital Signs: Vital Signs - 24 hr 04/15/20 14:00 04/15/20 21:46 04/16/20 04:50 Temperature 36.6 C 36.6 C 36.3 C L Pulse Rate 87 83 64 Respiratory Rate 20 18 18 Blood Pressure 134/66 124/67 147/70 H Pulse Oximetry 98 97 100 Intake/Output Intake/Output: Intake & Output 04/13/20 04/14/20 04/15/20 04/16/20 23:59 23:59 23:59 23:59 Intake Total 720 720 720 480 Balance 720 720 720 480 Meds/Results Medications: Active Medications Generic Name Dose Route Start Last Admin Trade Name Freq PRN Reason Stop Dose Admin Acetaminophen 650 mg 04/11/20 16:56 04/11/20 21:18 Acetaminophen 325 Mg Tablet PO 650 mg Q6H PRN Administration pain 1-4 Hydrocodone Bitart/Acetaminophen 1 tab 04/11/20 16:56 04/15/20 19:54 Hydrocodone/Acetaminophen (*Crx) 7.5-325 Mg Tablet PO 1 tab Q3H PRN Administration pain 6-10 Amlodipine Besylate 10 mg 04/12/20 09:00 04/16/20 09:11 Amlodipine Besylate 5 Mg Tablet PO 10 mg DAILY YOVANNY Administration Docusate Sodium 100 mg 04/11/20 16:56 Docusate Sodium 100 Mg Capsule PO BID PRN constipation Fondaparinux 2.5 mg 04/12/20 09:00 04/16/20 09:11 Fondaparinux Sodium 2.5 Mg/0.5 Ml Syringe SUB-Q 04/28/20 09:01 2.5 mg DAILY YOVANNY Administration Losartan Potassium 100 mg 04/12/20 09:00 04/16/20 09:10 Losartan Potassium 100 Mg Tablet PO 100 mg DAILY YOVANNY Administration Progress Note: A&P Assessment and Plan (1) Pneumonia: Code(s
[2020-04-16 14:00] VITALS: BP 174/75; PULSE 91; RESP 20; TEMP 37.3; O2SAT 95
[2020-04-16] MEDS: HYDROcodone/acetaminophen (*CRX) 7.5-325 MG TABLET 1 TAB PO (19:51)
[2020-04-16 21:43] VITALS: BP 132/77; PULSE 71; RESP 18; TEMP 36.7; O2SAT 96
[2020-04-17 05:19] VITALS: BP 131/71; PULSE 70; RESP 18; TEMP 36.6; O2SAT 95
[2020-04-17] MEDS: LOSARTAN POTASSIUM 100 MG TABLET PO (08:44)
[2020-04-17] MEDS: HYDROcodone/acetaminophen (*CRX) 7.5-325 MG TABLET 1 TAB PO ×2 (08:44→19:40)
[2020-04-17] MEDS: amLODIPine BESYLATE 5 MG TABLET 10 MG PO (08:44)
[2020-04-17] MEDS: FONDAPARINUX SODIUM 2.5 MG/0.5 ML SYRINGE SUB-Q (08:44)
[2020-04-17 14:00] VITALS: BP 120/69; PULSE 80; RESP 18; TEMP 36.2; O2SAT 100
[2020-04-17 19:50] VITALS: BP 128/64; PULSE 79; RESP 20; TEMP 36.7; O2SAT 97
[2020-04-18 05:40] VITALS: BP 149/63; PULSE 78; RESP 20; TEMP 36.3; O2SAT 98
[2020-04-18 08:00] VITALS: PULSE 78; RESP 20; O2SAT 98
[2020-04-18] MEDS: amLODIPine BESYLATE 5 MG TABLET 10 MG PO (08:39)
[2020-04-18] MEDS: LOSARTAN POTASSIUM 100 MG TABLET PO (08:39)
[2020-04-18] MEDS: FONDAPARINUX SODIUM 2.5 MG/0.5 ML SYRINGE SUB-Q (08:39)
[2020-04-18 14:00] VITALS: BP 129/36; PULSE 78; RESP 18; TEMP 36.3; O2SAT 99
[2020-04-18] MEDS: HYDROcodone/acetaminophen (*CRX) 7.5-325 MG TABLET 1 TAB PO (18:38)
[2020-04-18 22:00] VITALS: BP 149/75; PULSE 83; RESP 18; TEMP 37.1; O2SAT 97
[2020-04-19 04:58] LABS: Basophils Percent Auto 0.6 % (0.2-1.2); Hemoglobin 9.4 g/dL (12.0-15.0); Immature Granulocyte Absolute 0.02 K/mm3 (0.00-0.031); Immature Granulocyte Percent A 0.3 % (0-0.5); Lymphocytes Absolute Auto 1.24 K/mm3 (0.9-3.2); Lymphocytes Percent Auto 19.9 % (18.3-44.2); Mean Corpuscular HGB Conc 31.3 g/dl (32-36); Mean Corpuscular Hemoglobin 26.9 pg (26-34); Mean Platelet Volume 9.6 fl (7.4-10.4); Monocytes Absolute Auto 0.7 K/mm3 (0.1-0.6); Monocytes Percent Auto 11.1 % (2.6-8.5); Neutrophils Absolute Auto 4.2 K/mm3 (1.3-6.7); Neutrophils Percent Auto 68.1 % (45.5-73.1); Platelet Count Result 344 k/mm3 (150-375); Red Blood Count 3.49 M/mm3 (4.2-5.4); Red Cell Distribution Width 14.4 % (11.5-14.5); White Blood Count 6.2 K/mm3 (4.5-10.0)
[2020-04-19 05:27] LABS: Anion Gap 1 mmol/L (8-16); Blood Urea Nitrogen 17 mg/dL (7-17); Calcium 10.2 mg/dL (8.4-10.2); Carbon Dioxide 31 mmol/L (22-30); Chloride 110 mmol/L (98-107); Estimated CRCL calculation 52 ml/min; Estimated Glomerular Filt Rate > 60; Glucose 106 mg/dL (65-105); Phosphorus 3.2 mg/dL (2.5-4.5); Potassium 3.5 mmol/L (3.4-5.0); Sodium 142 mmol/L (137-145)
[2020-04-19 05:47] VITALS: BP 128/66; PULSE 80; RESP 18; TEMP 36.7; O2SAT 98
[2020-04-19 08:00] VITALS: PULSE 80; RESP 18; O2SAT 98
[2020-04-19] MEDS: HYDROcodone/acetaminophen (*CRX) 7.5-325 MG TABLET 1 TAB PO ×2 (09:21→18:42)
[2020-04-19] MEDS: amLODIPine BESYLATE 5 MG TABLET 10 MG PO (09:21)
[2020-04-19] MEDS: FONDAPARINUX SODIUM 2.5 MG/0.5 ML SYRINGE SUB-Q (09:21)
[2020-04-19] MEDS: LOSARTAN POTASSIUM 100 MG TABLET PO (09:21)
--- NOTE | 2020-04-19 12:21 | PCDIET ---
Nutrition Follow-Up Complete: No nutritional diagnosis at this time. Nutrition Goal: Meet estimated nutritional needs. Goal met. Patient consuming 100% of meals on easy to chew, level 7 diet. Last recorded weight is 55.5 kg. Recommend obtaining new weight. Bowel Motility: Last documented BM on 04/17/20. Labs Reviewed: Hgb (9.4), Hct (30.0), Glu (106), Cl (110) Meds Noted: [place], [place], Mamie Additional Notes: No documented pressure ulcers. Left hip surgical site with dressing. Will continue to monitor with same goal. Nutrition Monitoring and Evaluation: Follow up in 7 days.
[2020-04-19 14:00] VITALS: BP 124/69; PULSE 85; RESP 20; TEMP 36.9; O2SAT 98
--- NOTE | 2020-04-19 14:15 | WPDNEURORHBP ---
Subjective Date/time seen: 04/19/20 14:15 status post left hip fracture with repair, mentally challenged, extremely cooperative and pleasant involving the physical therapy and occupational therapy on a regular basis,lab reveals no significant change remains afebrile with temp of 36.9? pulse is 85 respirations 20 pulse ox 98 on room air and a blood pressure 124/69 in supine Review of Systems Review of Systems: All systems reviewed & are unremarkable except as noted in HPI and below Functional Status Ambulation Ability Ability to Ambulate 10 Feet: Standby Assistance Ability to Ambulate 50 Feet With 2 Turns: Standby Assistance Ability to Ambulate 150 Feet: Standby Assistance Ambulation Assistive Devices: Walker, Wheeled Exam Const: General: cooperative and comfortable Nutritional Appearance: average body habitus Limitations: language barrier and physical limitations HENMT: Head: normocephalic Ears: hearing grossly normal bilaterally General nose exam: Normal external nose present Neck: Neck: full ROM Resp: Auscultation: clear to auscultation bilaterally Cardio: Rate: regular rate Rhythm: regular rhythm GI: Auscultation: normal bowel sounds Neuro: General: oriented to person, oriented to place, moves all extremities and Unable to assess gait Cranial nerves: Yes CN's II-XII intact bilaterally Cognition (Neuro): normal cognition Speech: Abnormal speech present ( dysarthric and mildly dysphasic) slurred Gait exam (Neuro): Assisted gait required Motor exam (neuro): Pronator motor function not present and No tremor noted Deep tendon reflexes (DTR's): Right triceps reflex intensity grade: 1+, Left triceps reflex intensity grade: 1+, Rt Biceps (C5, C6): 1+, Left biceps reflex intensity grade: 1+, Right brachioradialis reflex intensity grade: 1+, Left brachioradialis reflex intensity grade: 1+, Right patellar reflex intensity grade: 1+, Left patellar reflex intensity grade: 1+, Right ankle reflex intensity grade: 1+ and Left ankle reflex intensity grade: 1+ Plantar Reflex Responses: downgoing: bilateral Psych: Appearance: grossly normal Objective Data Vital Signs Vital Signs: Vital Signs - 24 hr 04/18/20 22:00 04/19/20 05:47 04/19/20 08:00 Temperature 37.1 C 36.7 C Pulse Rate 83 80 80 Respiratory Rate 18 18 18 Blood Pressure 149/75 H 128/66 Pulse Oximetry 97 98 98 04/19/20 14:00 Temperature 36.9 C Pulse Rate 85 Respiratory Rate 20 Blood Pressure 124/69 Pulse Oximetry 98 Intake/Output Intake/Output: Intake & Output 04/16/20 04/17/20 04/18/20 04/19/20 23:59 23:59 23:59 23:59 Intake Total 720 720 720 480 Balance 720 720 720 480 Meds/Results Medications: Active Medications Generic Name Dose Route Start Last Admin Trade Name Noahq PRN Reason Stop Dose Admin Acetaminophen 650 mg 04/11/20 16:56 04/11/20 21:18 Acetaminophen 325 Mg Tablet PO 650 mg Q6H PRN Administration pain 1-4 Hydrocodone Bitart/Acetaminophen 1 tab 04/11/20 16:56 04/19/20 09:21 Hydrocodone/Acetaminophen (*Crx) 7.5-325 Mg Tablet PO 1 tab Q3H PRN Administration pain 6-10 Amlodipine Besylate 10 mg 04/12/20 09:00 04/19/20 09:21 Amlodipine Besylate 5 Mg Tablet PO 10 mg DAILY YOVANNY Administration Docusate Sodium 100 mg 04/11/20 16:56 Docusate Sodium 100 Mg Capsule PO BID PRN constipation Fondaparinux 2.5 mg 04/12/20 09:00 04/19/20 09:21 Fondaparinux Sodium 2.5 Mg/0.5 Ml Syringe SUB-Q 04/28/20 09:01 2.5 mg DAILY YOVANNY Administration Losartan Potassium 100 mg 04/12/20 09:00 04/19/20 09:21 Losartan Potassium 100 Mg Tablet PO 100 mg DAILY YOVANNY Administration Labs Labs: Laboratory Results - last 24 hr 04/19/20 04/19/20 04:25 04:25 WBC 6.2 RBC 3.49 L Hgb 9.4 L Hct 30.0 L MCV 86.0 MCH 26.9 MCHC 31.3 L RDW 14.4 Plt Count 344 MPV 9.6 Immature Gran % (Auto) 0.3 Neut % (Auto) 68.1 Lymph % (Auto) 19.9 [place] % (Auto) 11.1
[2020-04-19 22:00] VITALS: BP 129/70; PULSE 77; RESP 18; TEMP 36.8; O2SAT 96
[2020-04-20 06:00] VITALS: BP 118/67; PULSE 72; RESP 16; TEMP 36.7; O2SAT 99
[2020-04-20] MEDS: LOSARTAN POTASSIUM 100 MG TABLET PO (07:40)
[2020-04-20] MEDS: HYDROcodone/acetaminophen (*CRX) 7.5-325 MG TABLET 1 TAB PO ×2 (07:40→19:13)
[2020-04-20] MEDS: amLODIPine BESYLATE 5 MG TABLET 10 MG PO (07:40)
[2020-04-20] MEDS: FONDAPARINUX SODIUM 2.5 MG/0.5 ML SYRINGE SUB-Q (10:00)
--- NOTE | 2020-04-20 12:46 | WPDNEURORHBP ---
Subjective Date/time seen: 04/20/20 12:46 status post left hip fracture repair in addition to being mentally challenged but extremely cooperative and pleasant, case discussed in the meeting she has no specific complaint, all the arrangements are being made for her discharge and situation was discussed with her son as well. she remains afebrile with temp 36.7? pulse 72 respirations 16 pulse ox 99 blood pressure 118/67 in supine position and she is also Review of Systems Review of Systems: All systems reviewed & are unremarkable except as noted in HPI and below Functional Status Ambulation Ability Ability to Ambulate 10 Feet: Standby Assistance Ability to Ambulate 50 Feet With 2 Turns: Standby Assistance Ability to Ambulate 150 Feet: Standby Assistance Ambulation Assistive Devices: Walker, Wheeled Exam Const: General: cooperative, comfortable, no acute distress, alert and awake Nutritional Appearance: thin Orientation/consciousness: oriented to person and oriented to place Limitations: physical limitations HENMT: Head: normocephalic Ears: hearing grossly normal bilaterally General nose exam: Normal external nose present and No nasal discharge present Face and sinus: normal facial exam Mouth: Yes Normal oral and palatal mucosa present and Yes tongue normal Eyes: General: appearance normal, both eyes and all related structures Neck: Neck: full ROM and no lymphadenopathy Resp: Effort & Inspection: normal respiratory effort and able to speak in complete sentences Auscultation: clear to auscultation bilaterally Cardio: Rate: regular rate Rhythm: regular rhythm GI: Auscultation: normal bowel sounds Neuro: General: oriented to person, oriented to place and moves all extremities Cranial nerves: Yes CN's II-XII intact bilaterally Cognition (Neuro): normal cognition Motor exam (neuro): Pronator motor function not present, No tremor noted and Normal motor muscle tone present throughout Sensory Exam: normal sensation Deep tendon reflexes (DTR's): Right triceps reflex intensity grade: 1+, Left triceps reflex intensity grade: 1+, Rt Biceps (C5, C6): 1+, Left biceps reflex intensity grade: 1+, Right brachioradialis reflex intensity grade: 1+, Left brachioradialis reflex intensity grade: 1+, Right patellar reflex intensity grade: 1+, Left patellar reflex intensity grade: 1+, Right ankle reflex intensity grade: 1+ and Left ankle reflex intensity grade: 1+ Plantar Reflex Responses: downgoing: bilateral Coordination: [id number] test normal Extrem: General: full ROM and capillary refill normal Right upper extremity: full ROM and normal capillary refill Left upper extremity: full ROM and normal capillary refill Right lower extremity: full ROM and normal capillary refill Left lower extremity: normal capillary refill Objective Data Vital Signs Vital Signs: Vital Signs - 24 hr 04/19/20 14:00 04/19/20 22:00 04/20/20 06:00 Temperature 36.9 C 36.8 C 36.7 C Pulse Rate 85 77 72 Respiratory Rate 20 18 16 Blood Pressure 124/69 129/70 118/67 Pulse Oximetry 98 96 99 Intake/Output Intake/Output: Intake & Output 04/17/20 04/18/20 04/19/20 04/20/20 23:59 23:59 23:59 23:59 Intake Total 720 720 480 240 Balance 720 720 480 240 Meds/Results Medications: Active Medications Generic Name Dose Route Start Last Admin Trade Name Freq PRN Reason Stop Dose Admin Acetaminophen 650 mg 04/11/20 16:56 04/11/20 21:18 Acetaminophen 325 Mg Tablet PO 650 mg Q6H PRN Administration pain 1-4 Hydrocodone Bitart/Acetaminophen 1 tab 04/11/20 16:56 04/20/20 07:40 Hydrocodone/Acetaminophen (*Crx) 7.5-325 Mg Tablet PO 1 tab Q3H PRN Administration pain 6-10 Amlodipine Besylate 10 mg 04/12/20 09:00 04/20/20 07:40 Amlodipine Besylate 5 Mg Tablet PO 10 mg DAILY YOVANNY Administration Docusate Sodium 100 mg 04/11/20 16:56 Docusate Sodium 100 Mg Capsule PO BID PRN constipation Fondaparinux 2.5 mg
[2020-04-20 14:15] VITALS: BP 141/64; PULSE 94; RESP 16; TEMP 36.9; O2SAT 99
[2020-04-20 20:00] VITALS: PULSE 67; RESP 18; O2SAT 97
[2020-04-20 21:01] VITALS: BP 127/67; PULSE 67; RESP 18; TEMP 36.4; O2SAT 97
[2020-04-21 05:34] VITALS: BP 152/63; PULSE 83; RESP 20; TEMP 36.6; O2SAT 95
[2020-04-21] MEDS: LOSARTAN POTASSIUM 100 MG TABLET PO (08:17)
[2020-04-21] MEDS: amLODIPine BESYLATE 5 MG TABLET 10 MG PO (08:17)
[2020-04-21] MEDS: FONDAPARINUX SODIUM 2.5 MG/0.5 ML SYRINGE SUB-Q (08:18)
[2020-04-21] MEDS: HYDROcodone/acetaminophen (*CRX) 7.5-325 MG TABLET 1 TAB PO ×2 (08:18→17:49)
[2020-04-21 14:00] VITALS: BP 115/67; PULSE 82; RESP 18; TEMP 35.9; O2SAT 97
[2020-04-21 20:00] VITALS: PULSE 92; RESP 16; O2SAT 97
[2020-04-21] MEDS: SENNA/DOCUSATE SODIUM TABLET 2 TAB PO (20:32)
[2020-04-21 22:00] VITALS: BP 139/77; PULSE 92; RESP 16; TEMP 36.7; O2SAT 97
[2020-04-22 06:00] VITALS: BP 143/73; PULSE 87; RESP 16; TEMP 36.5; O2SAT 96
[2020-04-22] MEDS: FONDAPARINUX SODIUM 2.5 MG/0.5 ML SYRINGE SUB-Q (08:47)
[2020-04-22] MEDS: LOSARTAN POTASSIUM 100 MG TABLET PO (08:47)
[2020-04-22] MEDS: amLODIPine BESYLATE 5 MG TABLET 10 MG PO (08:48)
[2020-04-22] MEDS: HYDROcodone/acetaminophen (*CRX) 7.5-325 MG TABLET 1 TAB PO ×2 (08:48→17:50)
--- NOTE | 2020-04-22 13:08 | WPDNEURORHBP ---
Subjective Date/time seen: 04/22/20 13:08 status post left hip fracture continues to be involved actively in a physical therapy and occupational therapy extremely cooperative and happy person, remains afebrile with temp of 36.5? pulse 87 respirations 16 pulse ox 96% on room air blood pressure 143/73 she has no new lab. Functional Status Ambulation Ability Ability to Ambulate 10 Feet: Standby Assistance Ability to Ambulate 50 Feet With 2 Turns: Standby Assistance Ability to Ambulate 150 Feet: Independent Ambulation Assistive Devices: Walker, Wheeled Exam Const: General: cooperative and no acute distress Limitations: behavioral limitations and physical limitations HENMT: Head: normocephalic Ears: hearing grossly normal bilaterally General nose exam: Normal external nose present and No nasal discharge present Face and sinus: normal facial exam Mouth: Yes Normal oral and palatal mucosa present Eyes: General: appearance normal, both eyes and all related structures Neck: Neck: full ROM Resp: Effort & Inspection: normal respiratory effort Auscultation: clear to auscultation bilaterally Cardio: Rate: regular rate Rhythm: regular rhythm Skin: General skin exam: no rashes or lesions noted Neuro: General: oriented to person and oriented to place Cranial nerves: Yes CN's II-XII intact bilaterally Cognition (Neuro): normal cognition Gait exam (Neuro): Assisted gait required Motor exam (neuro): 5/5 motor strength present throughout Sensory Exam: normal sensation Deep tendon reflexes (DTR's): Right triceps reflex intensity grade: 1+, Left triceps reflex intensity grade: 1+, Rt Biceps (C5, C6): 1+, Left biceps reflex intensity grade: 1+, Right brachioradialis reflex intensity grade: 1+, Left brachioradialis reflex intensity grade: 1+, Right patellar reflex intensity grade: 1+, Left patellar reflex intensity grade: 1+, Right ankle reflex intensity grade: 1+ and Left ankle reflex intensity grade: 1+ Plantar Reflex Responses: downgoing: bilateral Coordination: [id number] test normal Psych: Appearance: grossly normal Objective Data Vital Signs Vital Signs: Vital Signs - 24 hr 04/21/20 14:00 04/21/20 20:00 04/21/20 22:00 Temperature 35.9 C L 36.7 C Pulse Rate 82 92 92 Respiratory Rate 18 16 16 Blood Pressure 115/67 139/77 Pulse Oximetry 97 97 97 04/22/20 06:00 Temperature 36.5 C Pulse Rate 87 Respiratory Rate 16 Blood Pressure 143/73 H Pulse Oximetry 96 Intake/Output Intake/Output: Intake & Output 04/19/20 04/20/20 04/21/20 04/22/20 23:59 23:59 23:59 23:59 Intake Total 480 720 720 240 Balance 480 720 720 240 Meds/Results Medications: Active Medications Generic Name Dose Route Start Last Admin Trade Name Noahq PRN Reason Stop Dose Admin Acetaminophen 650 mg 04/11/20 16:56 04/11/20 21:18 Acetaminophen 325 Mg Tablet PO 650 mg Q6H PRN Administration pain 1-4 Hydrocodone Bitart/Acetaminophen 1 tab 04/11/20 16:56 04/22/20 08:48 Hydrocodone/Acetaminophen (*Crx) 7.5-325 Mg Tablet PO 1 tab Q3H PRN Administration pain 6-10 Amlodipine Besylate 10 mg 04/12/20 09:00 04/22/20 08:48 Amlodipine Besylate 5 Mg Tablet PO 10 mg DAILY YOVANNY Administration Docusate Sodium 100 mg 04/11/20 16:56 Docusate Sodium 100 Mg Capsule PO BID PRN constipation Fondaparinux 2.5 mg 04/12/20 09:00 04/22/20 08:47 Fondaparinux Sodium 2.5 Mg/0.5 Ml Syringe SUB-Q 04/28/20 09:01 2.5 mg DAILY YOVANNY Administration Losartan Potassium 100 mg 04/12/20 09:00 04/22/20 08:47 Losartan Potassium 100 Mg Tablet PO 100 mg DAILY YOVANNY Administration Senna/Docusate Sodium 2 tab 04/21/20 21:00 04/21/20 20:32 Senna/Docusate Sodium Tablet PO 2 tab HS YOVANNY Administration Progress Note: A&P Assessment and Plan (1) Pneumonia: Code(s): J18.9 - Pneumonia, unspecified organism Status: Acute (2) Mentally challenged: Code(s): F79 - Unspecified
[2020-04-22 14:00] VITALS: BP 149/73; PULSE 90; RESP 18; TEMP 36.2; O2SAT 96
[2020-04-22] MEDS: SENNA/DOCUSATE SODIUM TABLET 2 TAB PO (19:51)
[2020-04-22 22:00] VITALS: BP 142/64; PULSE 76; RESP 18; TEMP 36.8; O2SAT 97
[2020-04-23 04:25] VITALS: BP 137/71; PULSE 68; RESP 18; TEMP 36.5; O2SAT 97
[2020-04-23 08:00] VITALS: PULSE 68; RESP 18; O2SAT 97
[2020-04-23] MEDS: FONDAPARINUX SODIUM 2.5 MG/0.5 ML SYRINGE SUB-Q (09:33)
[2020-04-23] MEDS: amLODIPine BESYLATE 5 MG TABLET 10 MG PO (09:33)
[2020-04-23] MEDS: LOSARTAN POTASSIUM 100 MG TABLET PO (09:33)
[2020-04-23 09:35] VITALS: TEMP 36.5
[2020-04-23] MEDS: ACETAMINOPHEN 325 MG TABLET 650 MG PO (09:35)
--- NOTE | 2020-04-23 10:05 | PM.PNORT ---
Progress Note: A&P Assessment and Plan (1) Closed left hip fracture: Qualifiers: Encounter type: subsequent encounter Fracture healing: with routine healing Qualified Code(s): S72.002D - Fracture of unspecified part of neck of left femur, subsequent encounter for closed fracture with routine healing Code(s): S72.002A - Fracture of unspecified part of neck of left femur, initial encounter for closed fracture Status: Acute Assessment and Plan: 2 weeks, 3 days s/p Left Hip Bipolar Continue PT/OT. WBAT. Walker. Continue pain control. Ice lateral hip. DVT prophylaxis. Dressing changed. Steri-strips in place. Allow to fall off naturally. Dispo: Home pending clearance from [facility]. Follow up scheduled. Time Spent With Patient Time with patient: less than 15 minutes Subjective Subjective Date/Time Seen: 04/23/20 10:05 No new complaints. Working well with PT/OT in [facility]. Awaiting discharge home, likely tomorrow. Review of Systems Constitutional: Constitutional: Reports no additional constitutional complaints, Denies excessive sweating, Denies fever(s) and Denies weight gain Eyes: Eyes: Reports no additional eye complaints and Denies change in vision ENT: Reports system reviewed and no additional complaints, except as documented and Reports Normal hearing present Cardiovascular: Cardiovascular: Denies chest pain, Denies diaphoresis, Denies leg ulcers and Denies dyspnea on exertion Respiratory: Respiratory: Reports no additional respiratory complaints, Denies cough and Denies dyspnea on exertion Gastrointestinal: Gastrointestinal: Reports no additional gastrointestinal complaints, Denies abdominal pain, Denies constipation, Denies nausea and Denies vomiting Musculoskeletal: Musculoskeletal: Reports as per HPI Integumentary/Breasts: Skin/Breast: Reports system reviewed and no additional complaints, except as docu Neurologic: Reports Normal hearing present Psychiatric: Psychiatric: Reports no additional psychiatric complaints Endocrine: Endocrine: Reports no additional endocrine complaints, Denies change in body appearance, Denies excessive sweating, Denies polyphagia, Denies polydipsia and Denies polyuria Hematologic/Lymphatic: Hematologic/Lymphatic: Reports no additional hematologic/lymphatic complaints Allergic/Immunologic: Allergic/Immunologic: Reports no additional allergic/immunologic complaints and Denies wheezing Exam Const: General: comfortable and no acute distress Resp: Effort & Inspection: normal respiratory effort Cardio: Rate: regular rate Rhythm: regular rhythm GI: Inspection: non-distended GI Palp: Yes Soft to palpation and No Tenderness to palpation present (GI) : External Female Exam: normal external appearance Urinary Catheter: Urinary Catheter: patent and draining and urine clear Skin: General skin exam: normal color Neuro: Cognition (Neuro): normal cognition Extrem: Left lower extremity: hip/thigh (Incision left hip CDI, dressing removed. Incision well-approximated, healin), knee (No effusion ), lower leg (Negative Randell's Sign ), ankle (+ankle dorsiflexion/plantarflexion ) and foot (2+ pedal pulses. Sensation intact ) Details: normal capillary refill Objective Data Vital Signs Vital Signs: Vital Signs - 24 hr 04/22/20 14:00 04/22/20 22:00 04/23/20 04:25 Temperature 36.2 C L 36.8 C 36.5 C Pulse Rate 90 76 68 Respiratory Rate 18 18 18 Blood Pressure 149/73 H 142/64 H 137/71 Pulse Oximetry 96 97 97 04/23/20 09:35 Temperature 36.5 C Pulse Rate Respiratory Rate Blood Pressure Pulse Oximetry Intake/Output Intake/Output: Intake & Output 04/20/20 04/21/20 04/22/20 04/23/20 23:59 23:59 23:59 23:59 Intake Total 720 720 720 240 Balance 720 720 720 240 Meds/Results Medications: Active Medications Generic Name Dose Route Start Last Admin Trade Name Freq PRN Reason Stop Dose Admin Acetaminophen 650 mg 04/11/20 16:56 04/23/20
[2020-04-23 14:00] VITALS: BP 134/66; PULSE 91; RESP 20; TEMP 37.2; O2SAT 97
[2020-04-23] MEDS: HYDROcodone/acetaminophen (*CRX) 7.5-325 MG TABLET 1 TAB PO (19:34)
[2020-04-23] MEDS: SENNA/DOCUSATE SODIUM TABLET 2 TAB PO (19:53)
[2020-04-23 20:00] VITALS: PULSE 76; RESP 18; O2SAT 98
[2020-04-23 22:00] VITALS: BP 130/82; PULSE 76; RESP 18; TEMP 36.6; O2SAT 98
[2020-04-24 05:01] VITALS: BP 132/69; PULSE 66; RESP 18; TEMP 36.6; O2SAT 96
[2020-04-24 08:00] VITALS: PULSE 66; RESP 18; O2SAT 96
[2020-04-24] MEDS: FONDAPARINUX SODIUM 2.5 MG/0.5 ML SYRINGE SUB-Q (08:47)
[2020-04-24] MEDS: LOSARTAN POTASSIUM 100 MG TABLET PO (08:47)
[2020-04-24] MEDS: amLODIPine BESYLATE 5 MG TABLET 10 MG PO (08:47)
--- NOTE | 2020-04-26 10:44 | PM.DS ---
DS: Admitting Diagnosis Admitting Diagnosis Admitting Diagnosis: Left hip fracture with multiple comorbid conditions as documented DS: Summary Hospital Course Hospital Course: remain actively involved in the physical therapy with no falls throughout the hospitalization and made significant improvement Time Spent with Patient Time attestation: :ADMISSION FUNCTION: 74 years old admitted to the rehab floor of [facility] primary rehab impairment category of 0 7 that is orthopedic that his lower extremity fracture and etiological diagnosis of subcapital fracture of the left femur neck in addition to the comorbid conditions of 1. Intellectually challenged. At the time of admission as per the information available patient's functional measures were as follows. Eating [Set Up Only] Oral Care Substantial or maximal Toileting Hygiene substantial or maximal assistance Shower/Bathing substantial or maximal assistance Upper Body Dressing set up Lower Body Dressing substantial or maximal assistance [place] Footwear dependent Rolling Left and Right substantial or maximal assistance Sit to Lying substantial or maximal assistance Lying to Sitting substantial or maximal assistance Sit to Stand partial assistance Bed to Chair Transfers substantial or maximal assist Toilet Transfers substantial or maximal assistance Car Transfers partial assistance Walking 10' substantial or maximal assistance Walking 50' with Two Turns substantial or maximal assistance Walking 150' unable Curb or step unable 12 Steps unable Picking Up Object substantial or maximal assistance [Wheelchair Mobility 50'] partial assistance [Wheelchair Mobility 150'] unable GOALS: Eating [INDEPENDENT] Oral Care [INDEPENDENT] Toileting Hygiene [INDEPENDENT] Shower/Bathing supervision Upper Body Dressing [INDEPENDENT] Lower Body Dressing supervision [place] Footwear supervision Rolling Left and Right [INDEPENDENT] Sit to Lying [INDEPENDENT] Lying to Sitting [INDEPENDENT] Sit to Stand [INDEPENDENT] Bed to Chair Transfers [INDEPENDENT] Toilet Transfers [INDEPENDENT] Car Transfers [INDEPENDENT] Walking 10' [INDEPENDENT] Walking 50' with Two Turns [INDEPENDENT] Walking 150' [INDEPENDENT] Curb or Step supervision 4 Steps [INDEPENDENT] 12 Steps not applicable Picking Up Object [INDEPENDENT] [Wheelchair Mobility 50'] [INDEPENDENT] [Wheelchair Mobility 150'] [INDEPENDENT] DISCHARGE PERFORMANCE: Eating [INDEPENDENT] Oral Care set up Toileting Hygiene set up Shower/Bathing supervision Upper Body Dressing set up Lower Body Dressing supervision [place] Footwear supervision Rolling Left and Right set up Sit to Lying [INDEPENDENT] Lying to Sitting [INDEPENDENT] Sit to Stand [INDEPENDENT] Bed to Chair Transfers [INDEPENDENT] Toilet Transfers [INDEPENDENT] Car Transfers [INDEPENDENT] Walking 10' supervision Walking 50' with Two Turns [INDEPENDENT] Walking 150' [INDEPENDENT] Curb or Step supervision 4 Steps supervision 12 Steps unable Picking Up Object [INDEPENDENT] [Wheelchair Mobility 50'] [INDEPENDENT] [Wheelchair Mobility 150'] [INDEPENDENT] # during the entire hospitalization patient remained actively involved in the physical therapy and occupational therapy at the time of discharge patient was able to ambulate up to 150ft independently with a wheeled walker, general physical examination remained stable and so as the neurological examination also her vital signs were normal with temp of 36.6? pulse 66 respiration 18 pulse ox 96% on room air. she was discharged to home with a home health and during the entire hospitalization she had no falls. Discharge Plan Discharge Attending physician on discharge: Lionel Slaughter Consulting providers: Filippo Arias Discharging Clinician: Lionel Slaughter Patient Disposition: Home Health Service Activity: may shower, no driving and follow weight bearing status Wound Care Instruction
== END 2020-04-24 13:30 | disposition home health service (06) | DRG 561 ==
PROVIDERS: Admitting Provider Psychiatry & Neurology Neurology; PCP Internal Medicine; Visit Provider Psychiatry & Neurology Neurology
DX: Z47.1 Aftercare following joint replacement surgery (principal); S72.012D Unspecified intracapsular fracture of left femur, subsequent encounter for closed fracture with routine healing; Z96.642 Presence of left artificial hip joint; W19.XXXD Unspecified fall, subsequent encounter; F79 Unspecified intellectual disabilities; M16.0 Bilateral primary osteoarthritis of hip; I44.0 Atrioventricular block, first degree; I10 Essential (primary) hypertension; Z87.891 Personal history of nicotine dependence; Z23 Encounter for immunization
CPT/HCPCS: 36415; 80048; 84100; 85025; 90471; 90653; 92523; 97110; 97116; 97161; 97166; 97530; 97535; 97542; A9270; G0008; J1652